=== PATIENT | female | born 1930 | race Caucasian/White ===

== ENCOUNTER 2017-02-21 13:08 | Inpatient (IN) | payer MEDICARE ==
[~2017-02-21 13:08] MED LIST: Polyethylene Glycol 3350 Powder 17 GM Packet PO PRN; Polyvinyl Alcohol 1.4% Ophth Soln 15 ML Bottle EYEBOTH PRN; Sodium Chloride 0.65% Nasal Spray 45 ML Bottle NAS PRN
[2017-02-21] MEDS ORDERED: Polyethylene Glycol 3350 Powder 17 GM Packet PO PRN (14:54)
--- NOTE | 2017-02-21 15:03 | PCM.HP ---
H&P History of Present Illness - General Date of Service: 02/21/17 Admit Problem/Dx: Admission Diagnosis/Problem Admission Diagnosis/Problem Knee pain Source of Information: Patient History Limitations: Reports: No Limitations - History of Present Illness Initial Comments - Free Text/Narative: 86-year-old female with past medical history of polymyalgia rheumatica, hypertension, and hypothyroidism, glaucoma, osteoporosis, osteoarthritis who is status post left knee total arthroplasty that was done on 02/18/17 without significant pre-operative complication. patient is being admitted to swing bed for post surgical physical therapy. She states that her pain is controlled and she has been able to tolerate physical therapy at the previous facility without any difficulties. should not have all movements since surgery until today when she had one this morning. she denies fever, chills, chest pain , palpitations, shortness of breath, nausea or vomiting. she can bear weight on her left lower extremity using walker. Patient was on Xarelto after surgery. This was changed to aspirin for DVT prophylaxis. However patient stated that she can't tolerate aspirin as she had personal and family history of bleeding from aspirin. patient declined to take aspirin and wants to be Xarelto instead Left Knee Pain Score (Numeric/FACES): 4 - Related Data Allergies/Adverse Reactions: Allergies Allergy/AdvReac Type Severity Reaction Status Date / Time aspirin Allergy Bleeding Verified 02/20/17 18:16 NSAIDS (Non-Steroidal Allergy Bleeding Verified 02/20/17 18:16 Anti-Inflamma Home Medications: Home Meds Calcium Carbonate/Vitamin D3 [Calcium 600 + D Tablet] 1 each PO DAILY 06/18/15 [ History] Levothyroxine [Synthroid] 50 mcg PO DAILY 06/18/15 [History] Acetaminophen [Tylenol Extra Strength] 1,000 mg PO TID PRN 06/23/15 [History] Latanoprost [Xalatan 0.005% Ophth Soln] 1 drop EYEBOTH BEDTIME 06/23/15 [History ] Psyllium Husk/Aspartame [Metamucil Sugar Free] 1 packet PO DAILY 06/23/15 [ History] Enalapril/Hydrochlorothiazide [Enalapril-HCTZ 10-25 MG] 1 tab PO DAILY 05/03/16 [History] Escitalopram Oxalate [Lexapro] 5 mg PO DAILY 05/03/16 [History] Levothyroxine Sodium [Synthroid] 12.5 mcg PO DAILY 05/03/16 [History] Vit A/C/E AC/Znox/Cupric Oxide [Eye Vitamin-Minerals Tablet] 2 tab PO BID [History] Ferrous Sulfate 325 mg PO WITHBREAKFAST #30 tablet 05/16/16 [Rx] Cholecalciferol (Vitamin D3) [Vitamin D3] 1,000 units PO DAILY 02/20/17 [History ] Polyethylene Glycol 3350 [MiraLAX] 17 gm PO DAILY PRN 02/20/17 [History] Calcium Carbonate [Calcium] 600 mg PO DAILY 02/21/17 [History] Past Medical History HEENT History: Reports: Cataract, Glaucoma, Macular Degeneration Other HEENT History: Sees spots in her vision at times Cardiovascular History: Reports: High Cholesterol, Hypertension Respiratory History: Reports: Bronchitis, Recurrent Gastrointestinal History: Reports: Diverticulosis, Hemorrhoids Genitourinary History: Reports: Urinary Incontinence Other Genitourinary History: Stress incontinence [employer] History: Reports: , Spontaneous Musculoskeletal History: Reports: Fracture, Osteoarthritis, Osteoporosis, Other (See Below) Other Musculoskeletal History: polymyalgia rheumatica, Proximal humeral fracture , Distal radial Fracture, closed left hip fracture Psychiatric History: Reports: Depression Endocrine/Metabolic History: Reports: Hyperparathyroidism, Hypothyroidism, Osteopenia, Osteoporosis Other Endocrine/Metabolic History: Hypothyroidism Hematologic History: Reports: Anemia Oncologic (Cancer) History: Reports: Squamous Cell Carcinoma Other Oncologic History: Endometrial cancer Dermatologic History: Reports: None - Infectious Disease History Infectious Disease History: Reports: Chicken Pox, Measles, Mumps - Past Surgical History HEENT Surgical History: Reports: None Cardiovascular Surgical History: Reports: None Respiratory Surgical History: Reports: None GI Surgical History: Reports: Colonoscopy, Polypectomy Female Surgical History: Reports: D&C, Hysterectomy, Salpingo-Oophorectomy, Other (See Below) Other Female Surgeries/Procedures: Endometrial biopsy, lymphadenectomy ( pelvic-all negative) Endocrine Surgical History: Reports: Parathyroidectomy Musculoskeletal Surgical History: Reports: Knee Replacement Oncologic Surgical History: Reports: None Dermatological Surgical History: Reports: Skin Biopsy Social & Family History - Family History Family Medical History: Noncontributory - Tobacco Use Smoking Status *Q: Former Smoker Years of Tobacco use: 10 Packs/Tins Daily: 1 Used Tobacco, but Quit: Yes Month Tobacco Last Used: 12 Second Hand Smoke Exposure: No - Caffeine Use Caffeine Use: Reports: Coffee - Recreational Drug Use Recreational Drug Use: No - Living Situation & Occupation Living situation: Reports: , Alone Occupation: Retired H&P Review of Systems - Review of Systems: Review Of Systems: See Below General: Reports: No Symptoms HEENT: Reports: No Symptoms Pulmonary: Reports: No Symptoms Cardiovascular: Reports: No Symptoms Gastrointestinal: Reports: No Symptoms Genitourinary: Reports: No Symptoms Musculoskeletal: Denies: Hand Pain, Muscle Stiffness Skin: Reports: No Symptoms Psychiatric: Reports: No Symptoms Neurological: Reports: No Symptoms Exam - Exam Exam: See Below - Vital Signs Vital Signs: Last Vital Signs Temp 37.1 C 02/21/17 14:20 Pulse 81 02/21/17 14:20 Resp 18 02/21/17 14:20 BP 128/56 L 02/21/17 14:20 Pulse Ox 98 02/21/17 14:20 Weight: 74.933 kg - Exam General: Alert, Oriented, Cooperative. No: Mild Distress, Moderate Distress, Severe Distress, Sedated, Lethargic, Obtunded HEENT: Conjunctiva Clear, EACs Clear, EOMI, Hearing Intact, Mucosa Moist & [place] , Nares Patent, Normal Nasal Septum, Posterior Pharynx Clear, Pupils Equal, Pupils Reactive, TMs Clear Neck: Supple, Trachea Midline Lungs: Clear to Auscultation, Normal Respiratory Effort Cardiovascular: Regular Rate, Regular Rhythm Abdomen: Normal Bowel Sounds, Soft, Pelvis Stable. No: Distention, Guarding, Rigidity, Rebound (Female) Exam: Deferred Rectal (Female) Exam: Deferred Back Exam: Normal Inspection, Full Range of Motion Extremities: Normal Pulses, Edema (mild left lower extremity edema acceptable for postsurgical condition. Left knee dressing is clean, dry, intact). No: Clubbing, Cyanosis, Calf Tenderness Neuro Extensive - Motor, Sensory, Reflexes: CN II-XII Intact, Normal Reflexes. No: Abnormal Motor Psychiatric: Alert, Normal Affect, Normal Mood *Q Meaningful Use (ADM) - VTE *Q VTE Criteria *Q: - Stroke *Q Stroke Criteria *Q: - AMI *Q AMI Criteria *Q: Problem List Initiated/Reviewed/Updated: Yes Orders Last 24hrs: Active Orders 24 hr Category Date Time Status Patient Status [ADT] Routine ADT 02/21/17 10:02 Active Ambulate [RC] PER UNIT ROUTINE Care 02/21/17 10:01 Active Antiembolic Devices [RC] PER UNIT ROUTINE Care 02/21/17 10:17 Active Height and Weight [RC] WEEKLY Care 02/21/17 10:11 Active Intake and Output [RC] ASDIRECTED Care 02/21/17 10:01 Active May Shower [RC] ASDIRECTED Care 02/21/17 10:01 Active Oxygen Therapy [RC] PRN Care 02/21/17 10:02 Active Up With Assistance [RC] ASDIRECTED Care 02/21/17 10:01 Active Up ad [place] [RC] ASDIRECTED Care 02/21/17 10:01 Active VTE/DVT Education [RC] PER UNIT ROUTINE Care 02/21/17 10:02 Active Vital Signs [RC] PER UNIT ROUTINE Care 02/21/17 10:02 Active OT Evaluation and Treatment [CONS] Routine Cons 02/21/17 10:01 Active PT Evaluation and Treatment [CONS] Routine Cons 02/21/17 10:01 Active Regular Diet [DIET] Diet 02/21/17 Breakfast Active Acetaminophen [Tylenol] Med 02/21/17 10:01 Active 650 mg PO Q4H PRN Acetaminophen/HYDROcodone [[place] 325-10 MG] Med 02/21/17 10:01 Active 1 tab PO Q4H PRN Calcium Carbonate Med 02/22/17 09:00 Ordered 600 mg PO DAILY Calcium Carbonate/Vitamin D3 [Calcium 600 + D Tablet] Med 02/22/17 09:00 Ordered 1 each PO DAILY Cholecalciferol (Vitamin D3) [Vitamin D3] Med 02/22/17 09:00 Ordered 1,000 units PO DAILY Docusate Sodium [Colace] Med 02/21/17 10:01 Active 100 mg PO BID PRN Docusate Sodium/Sennosides [Senna Plus] Med 02/21/17 10:01 Active 1 tab PO BEDTIME PRN Enalapril/Hydrochlorothiazide [Enalapril-HCTZ 10-25 MG] Med 02/22/17 09:00 Ordered 1 tab PO DAILY Escitalopram Oxalate [Lexapro] Med 02/22/17 09:00 Ordered 5 mg PO DAILY Ferrous Sulfate Med 02/22/17 08:00 Ordered 325 mg PO WITHBREAKFAST Latanoprost [Xalatan 0.005% Ophth Soln] Med 02/21/17 21:00 Ordered 1 drop EYEBOTH BEDTIME Levothyroxine Med 02/22/17 09:00 Ordered 12.5 mcg PO DAILY Levothyroxine [Synthroid] Med 02/22/17 09:00 Ordered 50 mcg PO DAILY Ondansetron [Zofran ODT] Med 02/21/17 10:01 Active 4 mg PO Q6H PRN Polyethylene Glycol 3350 [MiraLAX] Med 02/21/17 10:01 Active 17 gm PO DAILY PRN Polyethylene Glycol 3350 [MiraLAX] Med 02/21/17 14:54 Ordered 17 gm PO DAILY PRN Polyvinyl Alcohol [LiquiTears 1.4% Ophth Soln] Med 02/21/17 10:01 Active 0 ml EYEBOTH ASDIRECTED PRN Psyllium Husk/Aspartame Med 02/22/17 09:00 Ordered 1 packet PO DAILY Sodium Chloride 0.65% [[place] Nasal [place]] Med 02/21/17 10:01 Active 0 ml MARCIA BID PRN Vit A/C/E AC/Znox/Cupric Oxide [Eye Vitamin-Minerals Med 02/21/17 21:00 Ordered Tablet] 2 tab PO BID Antiembolic Hose [OM.PC] Routine Oth 02/21/17 10:01 Ordered Resuscitation Status Routine Resus Stat 02/21/17 10:01 Ordered Medication Orders Acetaminophen (Tylenol) 650 mg PO Q4H PRN PRN Reason: Pain (Mild 1-3)/fever Hydrocodone Bitart/Acetaminophen ([place] 325-10 Mg) 1 tab PO Q4H PRN PRN Reason: Pain (moderate 4-6) Artificial Tears (Liquitears 1.4% Ophth Soln) 0 ml EYEBOTH ASDIRECTED PRN PRN Reason: Dry Eyes Docusate Sodium (Colace) 100 mg PO BID PRN PRN Reason: Constipation Ondansetron HCl (Zofran Odt) 4 mg PO Q6H PRN PRN Reason: nausea, able to take PO Polyethylene Glycol (Miralax) 17 gm PO DAILY PRN PRN Reason: Constipation Senna/Docusate Sodium (Senna Plus) 1 tab PO BEDTIME PRN PRN Reason: Constipation Sodium Chloride ([place] Nasal [place]) 0 ml MARCIA BID PRN PRN Reason: Nasal Congestion Assessment/Plan Comment:: Status post left total knee arthroplasty. continue physical therapy Use walker okay to bear weight on left leg as tolerated opiate orally as needed for pain Essential Hypertension. continue home antihypertensive medication Hypothyroidism, on hormone replacement therapy. Polymyalgia rheumatica treat pain as needed Xarelto for DVT prophylaxis Patient wants to be DNR
[2017-02-21] MEDS: Acetaminophen 325 MG Tab PO PRN ×2 (17:31→22:54)
[2017-02-21] MEDS: Latanoprost 0.005% Ophth Soln 2.5 ML Bottle EYEBOTH SCH (22:55)
[2017-02-21] MEDS: Lutein/Minerals/Vit A,C & E Tab PO SCH (23:03)
[2017-02-22] MEDS: Acetaminophen 325 MG Tab PO PRN (03:35)
[2017-02-22] MEDS: Levothyroxine 50 MCG Tab PO SCH (06:03)
[2017-02-22] MEDS: Levothyroxine 25 MCG Tab PO SCH (06:03)
[2017-02-22] MEDS: Psyllium Husk Powder Sugar Free 5.85 GM Packet PO SCH (09:03)
[2017-02-22] MEDS: Escitalopram 10 MG Tab PO SCH (09:04)
[2017-02-22] MEDS: Lutein/Minerals/Vit A,C & E Tab PO SCH (09:04)
[2017-02-22] MEDS: Ferrous Sulfate 325 MG Tab PO SCH (09:05)
[2017-02-22] MEDS: Cholecalciferol (Vitamin D3) 400 Unit Tab PO SCH (09:05)
[2017-02-22] MEDS: Calcium Carbonate/Vitamin D3 1250 MG-200 Unit Tab PO SCH (09:05)
[2017-02-22] MEDS: Calcium Carbonate 500 MG Tab.Chew PO SCH (09:06)
[2017-02-22] MEDS: Hydrochlorothiazide 25 MG Tab PO SCH (09:25)
[2017-02-22] MEDS ORDERED: Mineral Oil/Petrolatum/Phenylephrine/Shark Liver Oil Oint 57 GM Tube RECTAL PRN (09:58)
--- NOTE | 2017-02-22 10:55 | PCM.SN ---
- Free Text/Narrative Note: patient was feeling tired but no change in her exam. Hemoglobin was checked and was 7.7. Yesterday was 8.5. She denies blood in the stool black stool or bleeding anywhere. When RBCs is orded. All check hemoglobin this evening and tomorrow and if Hgb continues to drop we may need to discontinue xarelto
[2017-02-22] MEDS ORDERED: diphenhydrAMINE 12.5 MG/5 ML Liquid 5 ML UD Cup PO PRN (12:03)
[2017-02-22] MEDS: Acetaminophen/HYDROcodone 325-10 MG Tab PO PRN (13:05)
[2017-02-22] MEDS: Rivaroxaban 10 MG Tab PO SCH (18:38)
[2017-02-22] MEDS: [UNRECOGNIZED DRUG - OTHER] PO SCH (20:33)
[2017-02-22] MEDS: Latanoprost 0.005% Ophth Soln 2.5 ML Bottle EYEBOTH SCH (20:33)
[2017-02-22] MEDS: Sodium Chloride 0.9% 10 ML Syringe FLUSH PRN (20:34)
[2017-02-23] MEDS: Levothyroxine 25 MCG Tab PO SCH (05:18)
[2017-02-23] MEDS: Levothyroxine 50 MCG Tab PO SCH (05:18)
[2017-02-23] MEDS: Acetaminophen 325 MG Tab PO PRN (05:18)
[2017-02-23] MEDS: Calcium Carbonate 500 MG Tab.Chew PO SCH (10:26)
[2017-02-23] MEDS: Calcium Carbonate/Vitamin D3 1250 MG-200 Unit Tab PO SCH (10:26)
[2017-02-23] MEDS: Ferrous Sulfate 325 MG Tab PO SCH (10:32)
[2017-02-23] MEDS: Hydrochlorothiazide 25 MG Tab PO SCH (10:33)
[2017-02-23] MEDS: Escitalopram 10 MG Tab PO SCH (10:33)
[2017-02-23] MEDS: Cholecalciferol (Vitamin D3) 400 Unit Tab PO SCH (10:34)
[2017-02-23] MEDS: [UNRECOGNIZED DRUG - OTHER] PO SCH ×2 (10:35→20:26)
[2017-02-23] MEDS: Psyllium Husk Powder Sugar Free 5.85 GM Packet PO SCH (10:35)
[2017-02-23] MEDS: Acetaminophen/HYDROcodone 325-10 MG Tab PO PRN ×2 (14:55→22:27)
[2017-02-23] MEDS: Docusate Sodium 100 MG Cap PO PRN (14:55)
[2017-02-23] MEDS: Rivaroxaban 10 MG Tab PO SCH (17:55)
[2017-02-23] MEDS: Sodium Chloride 0.9% 10 ML Syringe FLUSH PRN (20:26)
[2017-02-23] MEDS: Latanoprost 0.005% Ophth Soln 2.5 ML Bottle EYEBOTH SCH (20:26)
[2017-02-24] MEDS: Levothyroxine 50 MCG Tab PO SCH (05:38)
[2017-02-24] MEDS: Levothyroxine 25 MCG Tab PO SCH (05:38)
[2017-02-24] MEDS: Calcium Carbonate/Vitamin D3 1250 MG-200 Unit Tab PO SCH (09:24)
[2017-02-24] MEDS: Hydrochlorothiazide 25 MG Tab PO SCH (09:24)
[2017-02-24] MEDS: Escitalopram 10 MG Tab PO SCH (09:24)
[2017-02-24] MEDS: Cholecalciferol (Vitamin D3) 400 Unit Tab PO SCH (09:25)
[2017-02-24] MEDS: Ferrous Sulfate 325 MG Tab PO SCH (09:27)
[2017-02-24] MEDS: Psyllium Husk Powder Sugar Free 5.85 GM Packet PO SCH (09:28)
[2017-02-24] MEDS: Calcium Carbonate 500 MG Tab.Chew PO SCH (09:29)
[2017-02-24] MEDS: [UNRECOGNIZED DRUG - OTHER] PO SCH ×2 (09:30→22:43)
[2017-02-24] MEDS: Acetaminophen/HYDROcodone 325-10 MG Tab PO PRN ×2 (10:01→22:45)
[2017-02-24] MEDS: Acetaminophen 325 MG Tab PO PRN (17:19)
[2017-02-24] MEDS: Rivaroxaban 10 MG Tab PO SCH (17:20)
[2017-02-24] MEDS: Latanoprost 0.005% Ophth Soln 2.5 ML Bottle EYEBOTH SCH (22:44)
[2017-02-25] MEDS: Levothyroxine 50 MCG Tab PO SCH (05:58)
[2017-02-25] MEDS: Acetaminophen 325 MG Tab PO PRN ×2 (05:59→16:18)
[2017-02-25] MEDS: Levothyroxine 25 MCG Tab PO SCH (05:59)
[2017-02-25] MEDS: Cholecalciferol (Vitamin D3) 400 Unit Tab PO SCH (08:30)
[2017-02-25] MEDS: Hydrochlorothiazide 25 MG Tab PO SCH (08:34)
[2017-02-25] MEDS: Calcium Carbonate/Vitamin D3 1250 MG-200 Unit Tab PO SCH (08:35)
[2017-02-25] MEDS: Ferrous Sulfate 325 MG Tab PO SCH (08:35)
[2017-02-25] MEDS: Escitalopram 10 MG Tab PO SCH (08:36)
[2017-02-25] MEDS: Calcium Carbonate 500 MG Tab.Chew PO SCH (08:37)
[2017-02-25] MEDS: [UNRECOGNIZED DRUG - OTHER] PO SCH ×2 (08:37→21:40)
[2017-02-25] MEDS: Psyllium Husk Powder Sugar Free 5.85 GM Packet PO SCH (08:38)
[2017-02-25] MEDS: Acetaminophen/HYDROcodone 325-10 MG Tab PO PRN ×2 (10:30→22:25)
[2017-02-25] MEDS: Rivaroxaban 10 MG Tab PO SCH (17:32)
[2017-02-25] MEDS: Latanoprost 0.005% Ophth Soln 2.5 ML Bottle EYEBOTH SCH (21:41)
[2017-02-26] MEDS: Levothyroxine 25 MCG Tab PO SCH (05:46)
[2017-02-26] MEDS: Levothyroxine 50 MCG Tab PO SCH (05:46)
[2017-02-26] MEDS: Escitalopram 10 MG Tab PO SCH (08:43)
[2017-02-26] MEDS: Hydrochlorothiazide 25 MG Tab PO SCH (08:44)
[2017-02-26] MEDS: Ferrous Sulfate 325 MG Tab PO SCH (08:44)
[2017-02-26] MEDS: Calcium Carbonate/Vitamin D3 1250 MG-200 Unit Tab PO SCH (08:44)
[2017-02-26] MEDS: Cholecalciferol (Vitamin D3) 400 Unit Tab PO SCH (08:45)
[2017-02-26] MEDS: Calcium Carbonate 500 MG Tab.Chew PO SCH (08:45)
[2017-02-26] MEDS: [UNRECOGNIZED DRUG - OTHER] PO SCH ×2 (08:46→20:45)
[2017-02-26] MEDS: Psyllium Husk Powder Sugar Free 5.85 GM Packet PO SCH (08:47)
[2017-02-26] MEDS: Acetaminophen/HYDROcodone 325-10 MG Tab PO PRN ×2 (09:30→20:42)
[2017-02-26] MEDS: Sodium Chloride 0.9% 10 ML Syringe FLUSH PRN (13:30)
[2017-02-26] MEDS: Acetaminophen 325 MG Tab PO PRN (13:31)
[2017-02-26] MEDS: Rivaroxaban 10 MG Tab PO SCH (17:34)
[2017-02-26] MEDS: Latanoprost 0.005% Ophth Soln 2.5 ML Bottle EYEBOTH SCH (20:46)
[2017-02-27] MEDS: Levothyroxine 50 MCG Tab PO SCH (06:52)
[2017-02-27] MEDS: Levothyroxine 25 MCG Tab PO SCH (06:52)
[2017-02-27] MEDS: Acetaminophen/HYDROcodone 325-10 MG Tab PO PRN ×2 (07:38→21:17)
[2017-02-27] MEDS: Hydrochlorothiazide 25 MG Tab PO SCH (09:28)
[2017-02-27] MEDS: Ferrous Sulfate 325 MG Tab PO SCH (09:28)
[2017-02-27] MEDS: Docusate Sodium 100 MG Cap PO PRN (09:29)
[2017-02-27] MEDS: Cholecalciferol (Vitamin D3) 400 Unit Tab PO SCH (09:30)
[2017-02-27] MEDS: Calcium Carbonate/Vitamin D3 1250 MG-200 Unit Tab PO SCH (09:30)
[2017-02-27] MEDS: Calcium Carbonate 500 MG Tab.Chew PO SCH (09:30)
[2017-02-27] MEDS: Escitalopram 10 MG Tab PO SCH (09:31)
[2017-02-27] MEDS: Psyllium Husk Powder Sugar Free 5.85 GM Packet PO SCH (09:33)
[2017-02-27] MEDS: [UNRECOGNIZED DRUG - OTHER] PO SCH ×2 (13:01→21:18)
[2017-02-27] MEDS: Rivaroxaban 10 MG Tab PO SCH (18:00)
[2017-02-27] MEDS: Latanoprost 0.005% Ophth Soln 2.5 ML Bottle EYEBOTH SCH (21:16)
[2017-02-28] MEDS: Levothyroxine 25 MCG Tab PO SCH (06:23)
[2017-02-28] MEDS: Levothyroxine 50 MCG Tab PO SCH (06:23)
[2017-02-28] MEDS: Acetaminophen/HYDROcodone 325-10 MG Tab PO PRN ×2 (09:53→22:12)
[2017-02-28] MEDS: Calcium Carbonate 500 MG Tab.Chew PO SCH (09:53)
[2017-02-28] MEDS: Ferrous Sulfate 325 MG Tab PO SCH (09:54)
[2017-02-28] MEDS: Escitalopram 10 MG Tab PO SCH (09:54)
[2017-02-28] MEDS: Psyllium Husk Powder Sugar Free 5.85 GM Packet PO SCH (09:55)
[2017-02-28] MEDS: Cholecalciferol (Vitamin D3) 400 Unit Tab PO SCH (09:55)
[2017-02-28] MEDS: Calcium Carbonate/Vitamin D3 1250 MG-200 Unit Tab PO SCH (09:56)
[2017-02-28] MEDS: [UNRECOGNIZED DRUG - OTHER] PO SCH ×2 (10:10→20:18)
[2017-02-28] MEDS: Hydrochlorothiazide 25 MG Tab PO SCH (10:27)
[2017-02-28] MEDS: Rivaroxaban 10 MG Tab PO SCH (17:40)
[2017-02-28] MEDS: Latanoprost 0.005% Ophth Soln 2.5 ML Bottle EYEBOTH SCH (20:19)
[2017-03-01] MEDS: Acetaminophen 325 MG Tab PO PRN (05:23)
[2017-03-01] MEDS: Levothyroxine 50 MCG Tab PO SCH (05:24)
[2017-03-01] MEDS: Levothyroxine 25 MCG Tab PO SCH (05:25)
[2017-03-01] MEDS: Escitalopram 10 MG Tab PO SCH (09:04)
[2017-03-01] MEDS: Ferrous Sulfate 325 MG Tab PO SCH (09:04)
[2017-03-01] MEDS: Calcium Carbonate/Vitamin D3 1250 MG-200 Unit Tab PO SCH (09:04)
[2017-03-01] MEDS: Cholecalciferol (Vitamin D3) 400 Unit Tab PO SCH (09:05)
[2017-03-01] MEDS: Calcium Carbonate 500 MG Tab.Chew PO SCH (09:10)
[2017-03-01] MEDS: Psyllium Husk Powder Sugar Free 5.85 GM Packet PO SCH (09:14)
[2017-03-01] MEDS: Acetaminophen/HYDROcodone 325-10 MG Tab PO PRN ×2 (11:51→21:30)
[2017-03-01] MEDS: [UNRECOGNIZED DRUG - OTHER] PO SCH ×2 (11:55→20:48)
[2017-03-01 13:00] LABS: CHLORIDE,CL 96 mmol/L (101-111); SODIUM,NA 135 mmol/L (135-145)
[2017-03-01] MEDS: Hydrochlorothiazide 25 MG Tab PO SCH (13:44)
[2017-03-01] MEDS: Rivaroxaban 10 MG Tab PO SCH (17:50)
[2017-03-01] MEDS: Latanoprost 0.005% Ophth Soln 2.5 ML Bottle EYEBOTH SCH (20:49)
[2017-03-02] MEDS: Levothyroxine 25 MCG Tab PO SCH (05:18)
[2017-03-02] MEDS: Levothyroxine 50 MCG Tab PO SCH (05:18)
[2017-03-02] MEDS: Calcium Carbonate/Vitamin D3 1250 MG-200 Unit Tab PO SCH (08:52)
[2017-03-02] MEDS: Ferrous Sulfate 325 MG Tab PO SCH (08:52)
[2017-03-02] MEDS: Hydrochlorothiazide 25 MG Tab PO SCH (08:52)
[2017-03-02] MEDS: Psyllium Husk Powder Sugar Free 5.85 GM Packet PO SCH (08:53)
[2017-03-02] MEDS: Calcium Carbonate 500 MG Tab.Chew PO SCH (08:53)
[2017-03-02] MEDS: Escitalopram 10 MG Tab PO SCH (08:53)
[2017-03-02] MEDS: Cholecalciferol (Vitamin D3) 400 Unit Tab PO SCH (08:54)
[2017-03-02] MEDS: Acetaminophen/HYDROcodone 325-10 MG Tab PO PRN ×2 (08:55→20:56)
[2017-03-02] MEDS: [UNRECOGNIZED DRUG - OTHER] PO SCH ×2 (09:01→20:55)
[2017-03-02] MEDS ORDERED: Mineral Oil/Petrolatum/Phenylephrine/Shark Liver Oil Oint 57 GM Tube RECTAL PRN (10:50)
--- NOTE | 2017-03-02 12:01 | PN ---
DATE: 03/02/2017 SUBJECTIVE: Ms. Rosamaria Branham is an 86-year-old female with medical history significant for hypertension, hyperlipidemia, polymyalgia rheumatica, severe osteoarthritis requiring left knee total arthroplasty on 02/18/2017 at [facility] without any complications and admitted to the swing bed for continued physical therapy and occupational therapy. For the past 24 hours, the patient complains of increasing weakness and tiredness. She has poor oral intake as she claims that she is not feeling like eating. She also complains of unable to sleep well since this morning. She denied any chest pain. No shortness of breath. No abdominal pain. No nausea. No vomiting. No diarrhea. She has mild discomfort at the surgical site, which is the left knee 2-3/10 in intensity, aggravated on ambulation, relieved with pain medications, not associated with any nausea or vomiting. REVIEW OF SYSTEMS: Cardiovascular, respiratory, gastrointestinal, neurology, constitutional were all evaluated. PHYSICAL EXAMINATION: Vital Signs: Temperature of 98.5, pulse of 92, blood pressure 125/63, respiratory rate of 20, and saturating at 98% on room air. General Appearance: The patient is well oriented to time, place, and person. Follows commands spontaneously. Cardiovascular System: S1, S2 heard with normal intensity. No gallops. Respiratory: Clear to auscultation bilaterally. No wheeze. No crepitations. Abdomen: Soft. Bowel sounds positive. Nontender. No rigidity. Extremities: No edema in bilateral lower extremities. Neurology: No gross focal neurological deficits. MEDICATIONS: Reviewed. Continue Tylenol 650 every 4 hours as needed for pain, calcium carbonate 500 mg daily, docusate sodium twice a day as needed, enalapril 10 mg daily, Lexapro 5 mg daily, ferrous sulfate 325 mg daily, hydrochlorothiazide 25 mg daily, levothyroxine 50 mcg daily, Zofran 4 mg every 6 hours as needed for pain, Xarelto 10 mg daily, and diphenhydramine 12.5 mg as needed. LABORATORY DATA: Reviewed. WBC 8.4, hemoglobin 9.2, hematocrit 28.9, and platelet count 320. Sodium 135, potassium 4.1, chloride 96, bicarb 31, BUN 21, and creatinine 0.7. ASSESSMENT: 1. Left total knee arthroplasty. 2. Hypertension. 3. Hyperlipidemia. 4. Generalized weakness. 5. Anemia. 6. Hypothyroidism. 7. Polymyalgia rheumatica. PLAN: 1. Hypertension. The patient's blood pressure seems to be in acceptable range. Continue with current antihypertensive medications. 2. Hypothyroidism. The patient is currently on levothyroxine. Continue the same. 3. Status post left total knee arthroplasty. Continue Physical Therapy and Occupational Therapy. The patient was recently evaluated by Orthopedic Surgery. 4. Wound Care. Continue with wound care. Continue with pain medications for good control of the pain. 5. Hemorrhoids. The patient complained of pain at the hemorrhoidal site. We will prescribe hemorrhoidal cream for symptom control. 6. Deep vein thrombosis prophylaxis. Continue with Xarelto for DVT prophylaxis. 7. Generalized weakness. The patient has poor oral intake. She is not eating well and drinking well. This is reflecting in her labs where her BUN is slightly high suggestive of possible dehydration. The patient will be encouraged to eat and drink. We will recheck a BMP in a.m. and make sure the patient is not getting into prerenal azotemia from her dehydration. 8. Continue PT/OT while in the swing bed. [facility] /[id number]
[2017-03-02] MEDS: Rivaroxaban 10 MG Tab PO SCH (17:36)
[2017-03-02] MEDS: Latanoprost 0.005% Ophth Soln 2.5 ML Bottle EYEBOTH SCH (20:58)
[2017-03-03] MEDS: Levothyroxine 50 MCG Tab PO SCH (06:03)
[2017-03-03] MEDS: Levothyroxine 25 MCG Tab PO SCH (06:04)
[2017-03-03 06:53] LABS: CHLORIDE,CL 97 mmol/L (101-111); SODIUM,NA 136 mmol/L (135-145)
[2017-03-03] MEDS: Psyllium Husk Powder Sugar Free 5.85 GM Packet PO SCH (09:37)
[2017-03-03] MEDS: Cholecalciferol (Vitamin D3) 400 Unit Tab PO SCH (09:38)
[2017-03-03] MEDS: Escitalopram 10 MG Tab PO SCH (09:38)
[2017-03-03] MEDS: Hydrochlorothiazide 25 MG Tab PO SCH (09:38)
[2017-03-03] MEDS: Calcium Carbonate 500 MG Tab.Chew PO SCH (09:39)
[2017-03-03] MEDS: Ferrous Sulfate 325 MG Tab PO SCH (09:39)
[2017-03-03] MEDS: Calcium Carbonate/Vitamin D3 1250 MG-200 Unit Tab PO SCH (09:39)
[2017-03-03] MEDS: [UNRECOGNIZED DRUG - OTHER] PO SCH ×2 (10:24→20:41)
[2017-03-03] MEDS: Acetaminophen/HYDROcodone 325-10 MG Tab PO PRN ×2 (10:25→15:14)
[2017-03-03] MEDS: Rivaroxaban 10 MG Tab PO SCH (17:59)
[2017-03-03] MEDS: Latanoprost 0.005% Ophth Soln 2.5 ML Bottle EYEBOTH SCH (20:42)
[2017-03-04] MEDS: Levothyroxine 50 MCG Tab PO SCH (05:51)
[2017-03-04] MEDS: Levothyroxine 25 MCG Tab PO SCH (05:51)
[2017-03-04] MEDS: Acetaminophen/HYDROcodone 325-10 MG Tab PO PRN ×3 (07:53→21:01)
[2017-03-04] MEDS: Ferrous Sulfate 325 MG Tab PO SCH (07:53)
[2017-03-04] MEDS: Psyllium Husk Powder Sugar Free 5.85 GM Packet PO SCH (09:13)
[2017-03-04] MEDS: Cholecalciferol (Vitamin D3) 400 Unit Tab PO SCH (09:14)
[2017-03-04] MEDS: Calcium Carbonate 500 MG Tab.Chew PO SCH (09:14)
[2017-03-04] MEDS: Calcium Carbonate/Vitamin D3 1250 MG-200 Unit Tab PO SCH (09:15)
[2017-03-04] MEDS: Hydrochlorothiazide 25 MG Tab PO SCH (09:16)
[2017-03-04] MEDS: Escitalopram 10 MG Tab PO SCH (09:16)
[2017-03-04] MEDS: [UNRECOGNIZED DRUG - OTHER] PO SCH ×2 (09:17→21:02)
[2017-03-04] MEDS: Rivaroxaban 10 MG Tab PO SCH (17:36)
[2017-03-04] MEDS: Latanoprost 0.005% Ophth Soln 2.5 ML Bottle EYEBOTH SCH (21:03)
[2017-03-05] MEDS: Levothyroxine 50 MCG Tab PO SCH (05:51)
[2017-03-05] MEDS: Levothyroxine 25 MCG Tab PO SCH (06:00)
[2017-03-05] MEDS: Ferrous Sulfate 325 MG Tab PO SCH (08:03)
[2017-03-05] MEDS: Acetaminophen/HYDROcodone 325-10 MG Tab PO PRN ×3 (08:05→21:36)
[2017-03-05] MEDS: Psyllium Husk Powder Sugar Free 5.85 GM Packet PO SCH (09:20)
[2017-03-05] MEDS: Cholecalciferol (Vitamin D3) 400 Unit Tab PO SCH (09:21)
[2017-03-05] MEDS: Calcium Carbonate/Vitamin D3 1250 MG-200 Unit Tab PO SCH (09:21)
[2017-03-05] MEDS: Escitalopram 10 MG Tab PO SCH (09:23)
[2017-03-05] MEDS: Hydrochlorothiazide 25 MG Tab PO SCH (09:23)
[2017-03-05] MEDS: Calcium Carbonate 500 MG Tab.Chew PO SCH (09:24)
[2017-03-05] MEDS: [UNRECOGNIZED DRUG - OTHER] PO SCH ×2 (09:24→21:33)
[2017-03-05] MEDS: Rivaroxaban 10 MG Tab PO SCH (17:27)
[2017-03-05] MEDS: Latanoprost 0.005% Ophth Soln 2.5 ML Bottle EYEBOTH SCH (21:34)
[2017-03-06] MEDS: Levothyroxine 25 MCG Tab PO SCH (06:06)
[2017-03-06] MEDS: Levothyroxine 50 MCG Tab PO SCH (06:06)
[2017-03-06] MEDS: Acetaminophen/HYDROcodone 325-10 MG Tab PO PRN ×2 (06:08→20:01)
[2017-03-06] MEDS: Calcium Carbonate/Vitamin D3 1250 MG-200 Unit Tab PO SCH (10:42)
[2017-03-06] MEDS: Ferrous Sulfate 325 MG Tab PO SCH (10:42)
[2017-03-06] MEDS: [UNRECOGNIZED DRUG - OTHER] PO SCH ×2 (10:42→20:01)
[2017-03-06] MEDS: Escitalopram 10 MG Tab PO SCH (10:42)
[2017-03-06] MEDS: Psyllium Husk Powder Sugar Free 5.85 GM Packet PO SCH (10:42)
[2017-03-06] MEDS: Cholecalciferol (Vitamin D3) 400 Unit Tab PO SCH (10:43)
[2017-03-06] MEDS: Calcium Carbonate 500 MG Tab.Chew PO SCH (10:43)
[2017-03-06] MEDS: Hydrochlorothiazide 25 MG Tab PO SCH (11:44)
[2017-03-06] MEDS: Acetaminophen 325 MG Tab PO PRN (13:00)
[2017-03-06] MEDS: Rivaroxaban 10 MG Tab PO SCH (17:09)
[2017-03-06] MEDS: Latanoprost 0.005% Ophth Soln 2.5 ML Bottle EYEBOTH SCH (20:01)
[2017-03-07] MEDS: Levothyroxine 25 MCG Tab PO SCH (06:38)
[2017-03-07] MEDS: Levothyroxine 50 MCG Tab PO SCH (06:38)
[2017-03-07 06:58] LABS: CHLORIDE,CL 93 mmol/L (101-111); SODIUM,NA 132 mmol/L (135-145)
[2017-03-07] MEDS: Acetaminophen/HYDROcodone 325-10 MG Tab PO PRN ×2 (09:04→22:17)
[2017-03-07] MEDS: Ferrous Sulfate 325 MG Tab PO SCH (09:04)
[2017-03-07] MEDS: Psyllium Husk Powder Sugar Free 5.85 GM Packet PO SCH (09:04)
[2017-03-07] MEDS: Calcium Carbonate 500 MG Tab.Chew PO SCH (09:04)
[2017-03-07] MEDS: Calcium Carbonate/Vitamin D3 1250 MG-200 Unit Tab PO SCH (09:05)
[2017-03-07] MEDS: Escitalopram 10 MG Tab PO SCH (09:05)
[2017-03-07] MEDS: Cholecalciferol (Vitamin D3) 400 Unit Tab PO SCH (09:06)
[2017-03-07] MEDS: [UNRECOGNIZED DRUG - OTHER] PO SCH ×2 (09:13→20:24)
--- NOTE | 2017-03-07 12:16 | PCM.PN ---
- General Info Date of Service: 03/07/17 Admission Dx/Problem (Free Text): Admission Diagnosis/Problem Admission Diagnosis/Problem Knee pain Subjective Update: continues to have left knee pain associated with night swelling, pain is worse with movements. no chest pain or shortness of breath. Bowel movements are regular but has little appetite Functional Status: Reports: tolerating diet - Review of Systems Pulmonary: Denies: shortness of breath Cardiovascular: Denies: Chest Pain Gastrointestinal: Denies: Abdominal pain Genitourinary: Denies: dysuria - Patient Data Vitals - most recent: Last Vital Signs Temp 37.6 C 03/07/17 08:00 Pulse 83 03/06/17 15:09 Resp 20 03/07/17 08:00 BP 107/42 L 03/07/17 09:45 Pulse Ox 98 03/07/17 08:00 Weight - most recent: 73.539 kg I&O - last 24 hours: Intake & Output 03/06/17 03/07/17 03/07/17 22:59 06:59 14:59 Intake Total 900 Balance 900 Lab Results last 24 hrs: Laboratory Results - last 24 hr 03/07/17 03/07/17 Range/Units 06:12 06:12 WBC 7.5 (5.0-10.0) 10^3/uL RBC 2.75 L (4.2-5.4) 10^6/uL Hgb 8.6 L (12.0-16.0) g/dL Hct 27.1 L (37.0-47.0) % MCV 98.5 (80-100) fL MCH 31.3 (27.0-34.0) pg MCHC 31.7 L (33.0-35.0) g/dL Plt Count 330 (150-450) 10^3/uL Neut % (Auto) 80.9 H (42.2-75.2) % Lymph % (Auto) 7.2 L (20.5-50.1) % [place] % (Auto) 11.0 H (2-8) % Eos % (Auto) 0.8 L (1.0-3.0) % Baso % (Auto) 0.1 (0.0-1.0) % Sodium 132 L (135-145) mmol/L Potassium 4.0 (3.6-5.0) mmol/L Chloride 93 L (101-111) mmol/L Carbon Dioxide 29.0 (21.0-31.0) mmol/L Anion Gap 14.0 BUN 19 H (7-18) mg/dL Creatinine 0.6 (0.6-1.3) mg/dL Est Cr Clr Drug Dosing 55.20 mL/min Estimated GFR (MDRD) > 60 Glucose 106 H (74-105) mg/dL Calcium 8.3 L (8.4-10.2) mg/dl Med Orders - Current: Current Medications Acetaminophen (Tylenol) 650 mg PO Q4H PRN PRN Reason: Pain (Mild 1-3)/fever Last Admin: 03/06/17 13:00 Dose: 650 mg Hydrocodone Bitart/Acetaminophen ([place] 325-10 Mg) 1 tab PO Q4H PRN PRN Reason: Pain (moderate 4-6) Last Admin: 03/07/17 09:04 Dose: 1 tab Artificial Tears (Liquitears 1.4% Ophth Soln) 0 ml EYEBOTH ASDIRECTED PRN PRN Reason: Dry Eyes Calcium Carbonate (Calcium Carbonate/Vitamin D 1250 Mg-200 Unit) 1 tab PO DAILY [facility] Last Admin: 03/07/17 09:05 Dose: 1 tab Calcium Carbonate/Glycine (Tums) 500 mg PO DAILY [facility] Last Admin: 03/07/17 09:04 Dose: 500 mg Cholecalciferol (Vitamin D3) 1,000 units PO DAILY [facility] Last Admin: 03/07/17 09:06 Dose: 1,000 units Diphenhydramine HCl (Benadryl) 12.5 mg PO ONETIME PRN PRN Reason: before blood transfusion Docusate Sodium (Colace) 100 mg PO BID PRN PRN Reason: Constipation Last Admin: 02/27/17 09:29 Dose: 100 mg Enalapril Maleate (Vasotec) 10 mg PO DAILY [facility] Last Admin: 03/07/17 09:45 Dose: 10 mg Escitalopram Oxalate (Lexapro) 5 mg PO DAILY [facility] Last Admin: 03/07/17 09:05 Dose: 5 mg Ferrous Sulfate (Ferrous Sulfate) 325 mg PO WITHBREAKFAST [facility] Last Admin: 03/07/17 09:04 Dose: 325 mg Latanoprost (Xalatan 0.005% Ophth Soln) 0 ml EYEBOTH BEDTIME [facility] Last Admin: 03/06/17 20:01 Dose: 1 drop Levothyroxine Sodium (Synthroid) 50 mcg PO DAILY@0600 [facility] Last Admin: 03/07/17 06:38 Dose: 50 mcg Levothyroxine Sodium (Levothyroxine) 12.5 mcg PO DAILY@0600 [facility] Last Admin: 03/07/17 06:38 Dose: 12.5 mcg Ondansetron HCl (Zofran Odt) 4 mg PO Q6H PRN PRN Reason: nausea, able to take PO Eyepromise Restore 1 (Tab Own Med) 1 each PO BID [facility] Last Admin: 03/07/17 09:13 Dose: 1 each Phenyleph/Shark Oil/Min Oil/Petrol (Preparation H Oint) 0 gm RECTAL TID PRN PRN Reason: Perineal Comfort Measure Polyethylene Glycol (Miralax) 17 gm PO DAILY PRN PRN Reason: Constipation Psyllium Husk (Metamucil Sugar Free) 1 pkt PO DAILY [facility] Last Admin: 03/07/17 09:04 Dose: 1 pkt Rivaroxaban (Xarelto) 10 mg PO WITHDINNER [facility] Last Admin: 03/06/17 17:09 Dose: 10 mg Senna/Docusate Sodium (Senna Plus) 1 tab PO BEDTIME PRN PRN Reason: Constipation Sodium Chloride ([place] Nasal [place]) 0 ml MARCIA BID PRN PRN Reason: Nasal Congestion Discontinued Medications Enalapril Maleate (Vasotec) 10 mg PO DAILY [facility] Last Admin: 03/06/17 11:45 Dose: Not Given Hydrochlorothiazide (Hydrochlorothiazide) 25 mg PO DAILY [facility] Last Admin: 03/06/17 11:44 Dose: Not Given Multivitamins/Minerals (I-Segun) 2 each PO BID [facility] Last Admin: 02/22/17 09:04 Dose: 2 each Phenyleph/[place]ark Oil/Min Oil/Petrol (Preparation H Oint) 0 gm RECTAL BID PRN PRN Reason: Hemorrhoids Polyethylene Glycol (Miralax) 17 gm PO DAILY PRN PRN Reason: Constipation Sodium Chloride (Saline Flush) 10 ml FLUSH ASDIRECTED PRN PRN Reason: Keep Vein Open Last Admin: 02/26/17 13:30 Dose: 10 ml - Exam General: alert, oriented Neck: supple Lungs: Clear to auscultation, Normal respiratory effort Cardiovascular: Regular Rate, Regular Rhythm Abdomen: bowel sounds present, soft, no tenderness, no distension Extremities: edema (trace left lower extremity edema) Skin: warm, dry, intact Neurological: no new focal deficit Psy/Mental Status: alert, normal affect, normal mood - Problem List & Annotations (1) Status post left knee replacement SNOMED Code(s): 3794300407012, 5222594142958 Code(s): Z96.652 - PRESENCE OF LEFT ARTIFICIAL KNEE JOINT Status: Acute Current Visit: Yes (2) HTN (hypertension) SNOMED Code(s): 17441127 Code(s): I10 - ESSENTIAL (PRIMARY) HYPERTENSION Status: Chronic Current Visit: No - Problem List Review Problem List Initiated/Reviewed/Updated: Yes - My Orders Last 24 Hours: My Active Orders 03/07/17 09:00 Enalapril [Vasotec] 10 mg PO DAILY 03/07/17 12:05 Communication Order [RC] DAILY - Plan Plan:: 86-year-old lady with a history of hypertension, dyslipidemia, polymyalgia rheumatica. The patient underwent left knee arthroplasty on 18 Feb 2017. The patient was transferred for further physical therapy and occupational therapy in a swing bed setting. Status post left total knee arthroplasty Continue physical therapy, occupational therapy Pain control appears good DVT prophylaxis with Xarelto Postoperative anemia - treat with iron Hypertension Treat with Vasotec Hypothyroidism Treatment with Synthroid Hyponatremia Mild, likely nutritional Will follow periodically
[2017-03-07] MEDS: Acetaminophen 325 MG Tab PO PRN (14:59)
[2017-03-07] MEDS: Rivaroxaban 10 MG Tab PO SCH (18:20)
[2017-03-07] MEDS: Latanoprost 0.005% Ophth Soln 2.5 ML Bottle EYEBOTH SCH (20:24)
[2017-03-07] MEDS: Docusate Sodium 100 MG Cap PO PRN (22:17)
[2017-03-08] MEDS: Levothyroxine 50 MCG Tab PO SCH (05:24)
[2017-03-08] MEDS: Levothyroxine 25 MCG Tab PO SCH (05:24)
[2017-03-08] MEDS: Acetaminophen 325 MG Tab PO PRN ×3 (05:24→21:51)
[2017-03-08] MEDS: Psyllium Husk Powder Sugar Free 5.85 GM Packet PO SCH (09:00)
[2017-03-08] MEDS: Cholecalciferol (Vitamin D3) 400 Unit Tab PO SCH (09:01)
[2017-03-08] MEDS: Ferrous Sulfate 325 MG Tab PO SCH (09:02)
[2017-03-08] MEDS: Escitalopram 10 MG Tab PO SCH (09:03)
[2017-03-08] MEDS: Calcium Carbonate/Vitamin D3 1250 MG-200 Unit Tab PO SCH (09:03)
[2017-03-08] MEDS: Calcium Carbonate 500 MG Tab.Chew PO SCH (09:04)
[2017-03-08] MEDS: [UNRECOGNIZED DRUG - OTHER] PO SCH ×2 (09:05→21:31)
[2017-03-08] MEDS: Ondansetron 4 MG Tab.DIS PO PRN (15:41)
[2017-03-08] MEDS: Rivaroxaban 10 MG Tab PO SCH (17:46)
[2017-03-08] MEDS: Latanoprost 0.005% Ophth Soln 2.5 ML Bottle EYEBOTH SCH (21:32)
[2017-03-09] MEDS: Acetaminophen/HYDROcodone 325-10 MG Tab PO PRN ×3 (00:19→22:08)
[2017-03-09] MEDS: Levothyroxine 25 MCG Tab PO SCH (06:29)
[2017-03-09] MEDS: Levothyroxine 50 MCG Tab PO SCH (06:29)
[2017-03-09] MEDS: Calcium Carbonate 500 MG Tab.Chew PO SCH (09:03)
[2017-03-09] MEDS: Cholecalciferol (Vitamin D3) 400 Unit Tab PO SCH (09:04)
[2017-03-09] MEDS: Acetaminophen 325 MG Tab PO PRN (09:04)
[2017-03-09] MEDS: Psyllium Husk Powder Sugar Free 5.85 GM Packet PO SCH (09:04)
[2017-03-09] MEDS: Ferrous Sulfate 325 MG Tab PO SCH (09:06)
[2017-03-09] MEDS: Calcium Carbonate/Vitamin D3 1250 MG-200 Unit Tab PO SCH (09:06)
[2017-03-09] MEDS: [UNRECOGNIZED DRUG - OTHER] PO SCH ×2 (09:07→22:09)
[2017-03-09] MEDS: Escitalopram 10 MG Tab PO SCH (09:07)
[2017-03-09] MEDS: Rivaroxaban 10 MG Tab PO SCH (17:18)
[2017-03-09] MEDS: Latanoprost 0.005% Ophth Soln 2.5 ML Bottle EYEBOTH SCH (22:10)
[2017-03-10] MEDS: Levothyroxine 25 MCG Tab PO SCH (06:05)
[2017-03-10] MEDS: Levothyroxine 50 MCG Tab PO SCH (06:05)
[2017-03-10] MEDS: Ondansetron 4 MG Tab.DIS PO PRN (08:43)
[2017-03-10] MEDS: Ferrous Sulfate 325 MG Tab PO SCH (08:43)
[2017-03-10] MEDS: Cholecalciferol (Vitamin D3) 400 Unit Tab PO SCH (09:19)
[2017-03-10] MEDS: Calcium Carbonate/Vitamin D3 1250 MG-200 Unit Tab PO SCH (09:20)
[2017-03-10] MEDS: Escitalopram 10 MG Tab PO SCH (09:21)
[2017-03-10] MEDS: Calcium Carbonate 500 MG Tab.Chew PO SCH (09:21)
[2017-03-10] MEDS: Acetaminophen/HYDROcodone 325-10 MG Tab PO PRN (09:21)
[2017-03-10] MEDS: Psyllium Husk Powder Sugar Free 5.85 GM Packet PO SCH (09:23)
[2017-03-10] MEDS: [UNRECOGNIZED DRUG - OTHER] PO SCH ×2 (09:24→21:55)
[2017-03-10] MEDS: Rivaroxaban 10 MG Tab PO SCH (17:17)
[2017-03-10] MEDS: Latanoprost 0.005% Ophth Soln 2.5 ML Bottle EYEBOTH SCH (21:56)
[2017-03-10] MEDS: Acetaminophen 325 MG Tab PO PRN (21:57)
[2017-03-11] MEDS: Levothyroxine 50 MCG Tab PO SCH (05:36)
[2017-03-11] MEDS: Levothyroxine 25 MCG Tab PO SCH (05:37)
[2017-03-11 07:03] LABS: CHLORIDE,CL 98 mmol/L (101-111); SODIUM,NA 134 mmol/L (135-145)
[2017-03-11] MEDS: Ferrous Sulfate 325 MG Tab PO SCH (08:07)
[2017-03-11] MEDS: Cholecalciferol (Vitamin D3) 400 Unit Tab PO SCH (09:22)
[2017-03-11] MEDS: Calcium Carbonate/Vitamin D3 1250 MG-200 Unit Tab PO SCH (09:22)
[2017-03-11] MEDS: Acetaminophen 325 MG Tab PO PRN ×3 (09:23→21:30)
[2017-03-11] MEDS: Calcium Carbonate 500 MG Tab.Chew PO SCH (09:23)
[2017-03-11] MEDS: Docusate Sodium 100 MG Cap PO PRN (09:23)
[2017-03-11] MEDS: Escitalopram 10 MG Tab PO SCH (09:24)
[2017-03-11] MEDS: [UNRECOGNIZED DRUG - OTHER] PO SCH ×2 (09:25→21:30)
[2017-03-11] MEDS: Psyllium Husk Powder Sugar Free 5.85 GM Packet PO SCH (09:26)
--- NOTE | 2017-03-11 12:41 | PCM.PN ---
- General Info Date of Service: 03/11/17 Admission Dx/Problem (Free Text): Admission Diagnosis/Problem Admission Diagnosis/Problem Knee pain Subjective Update: continues to have mild left knee pain associated with mild swelling, pain is worse with movements was able to tolerate physical therapy. no chest pain or shortness of breath. poor appetite - Review of Systems General: Reports: Weakness. Denies: Fever Pulmonary: Denies: shortness of breath Cardiovascular: Denies: Chest Pain, Palpitations Gastrointestinal: Denies: Abdominal pain Genitourinary: Denies: dysuria Psychiatric: Denies: confusion - Patient Data Vitals - most recent: Last Vital Signs Temp 36.9 C 03/11/17 07:00 Pulse 79 03/11/17 07:00 Resp 20 03/11/17 07:00 BP 112/60 03/11/17 09:24 Pulse Ox 98 03/11/17 07:00 Weight - most recent: 73.539 kg I&O - last 24 hours: Intake & Output 03/10/17 03/11/17 03/11/17 22:59 06:59 14:59 Intake Total 120 400 120 Balance 120 400 120 Lab Results last 24 hrs: Laboratory Results - last 24 hr 03/11/17 03/11/17 Range/Units 06:04 06:04 WBC 10.3 H (5.0-10.0) 10^3/uL RBC 2.70 L (4.2-5.4) 10^6/uL Hgb 8.3 L (12.0-16.0) g/dL Hct 26.4 L (37.0-47.0) % MCV 97.8 (80-100) fL MCH 30.7 (27.0-34.0) pg MCHC 31.4 L (33.0-35.0) g/dL Plt Count 331 (150-450) 10^3/uL Neut % (Auto) 81.2 H (42.2-75.2) % Lymph % (Auto) 5.3 L (20.5-50.1) % [place] % (Auto) 12.6 H (2-8) % Eos % (Auto) 0.8 L (1.0-3.0) % Baso % (Auto) 0.1 (0.0-1.0) % Sodium 134 L (135-145) mmol/L Potassium 3.8 (3.6-5.0) mmol/L Chloride 98 L (101-111) mmol/L Carbon Dioxide 28.0 (21.0-31.0) mmol/L Anion Gap 11.8 BUN 14 (7-18) mg/dL Creatinine 0.6 (0.6-1.3) mg/dL Est Cr Clr Drug Dosing 55.20 mL/min Estimated GFR (MDRD) > 60 Glucose 105 (74-105) mg/dL Calcium 8.3 L (8.4-10.2) mg/dl Med Orders - Current: Current Medications Acetaminophen (Tylenol) 650 mg PO Q4H PRN PRN Reason: Pain (Mild 1-3)/fever Last Admin: 03/11/17 09:23 Dose: 650 mg Hydrocodone Bitart/Acetaminophen ([place] 325-10 Mg) 1 tab PO Q4H PRN PRN Reason: Pain (moderate 4-6) Last Admin: 03/10/17 09:21 Dose: 1 tab Artificial Tears (Liquitears 1.4% Ophth Soln) 0 ml EYEBOTH ASDIRECTED PRN PRN Reason: Dry Eyes Calcium Carbonate (Calcium Carbonate/Vitamin D 1250 Mg-200 Unit) 1 tab PO DAILY [facility] Last Admin: 03/11/17 09:22 Dose: 1 tab Calcium Carbonate/Glycine (Tums) 500 mg PO DAILY [facility] Last Admin: 03/11/17 09:23 Dose: 500 mg Cholecalciferol (Vitamin D3) 1,000 units PO DAILY [facility] Last Admin: 03/11/17 09:22 Dose: 1,000 units Diphenhydramine HCl (Benadryl) 12.5 mg PO ONETIME PRN PRN Reason: before blood transfusion Docusate Sodium (Colace) 100 mg PO BID PRN PRN Reason: Constipation Last Admin: 03/11/17 09:23 Dose: 100 mg Enalapril Maleate (Vasotec) 10 mg PO DAILY [facility] Last Admin: 03/11/17 09:24 Dose: 10 mg Escitalopram Oxalate (Lexapro) 10 mg PO DAILY [facility] Last Admin: 03/11/17 09:24 Dose: 10 mg Ferrous Sulfate (Ferrous Sulfate) 325 mg PO WITHBREAKFAST [facility] Last Admin: 03/11/17 08:07 Dose: 325 mg Latanoprost (Xalatan 0.005% Ophth Soln) 0 ml EYEBOTH BEDTIME [facility] Last Admin: 03/10/17 21:56 Dose: 1 drop Levothyroxine Sodium (Synthroid) 50 mcg PO DAILY@0600 [facility] Last Admin: 03/11/17 05:36 Dose: 50 mcg Levothyroxine Sodium (Levothyroxine) 12.5 mcg PO DAILY@0600 [facility] Last Admin: 03/11/17 05:37 Dose: 12.5 mcg Ondansetron HCl (Zofran Odt) 4 mg PO Q6H PRN PRN Reason: nausea, able to take PO Last Admin: 03/10/17 08:43 Dose: 4 mg Eyepromise Restore 1 (Tab Own Med) 1 each PO BID [facility] Last Admin: 03/11/17 09:25 Dose: 1 each Phenyleph/Shark Oil/Min Oil/Petrol (Preparation H Oint) 0 gm RECTAL TID PRN PRN Reason: Perineal Comfort Measure Polyethylene Glycol (Miralax) 17 gm PO DAILY PRN PRN Reason: Constipation Psyllium Husk (Metamucil Sugar Free) 1 pkt PO DAILY [facility] Last Admin: 03/11/17 09:26 Dose: Not Given Rivaroxaban (Xarelto) 10 mg PO WITHDINNER [facility] Last Admin: 03/10/17 17:17 Dose: 10 mg Senna/Docusate Sodium (Senna Plus) 1 tab PO BEDTIME PRN PRN Reason: Constipation Sodium Chloride ([place] Nasal [place]) 0 ml MARCIA BID PRN PRN Reason: Nasal Congestion Discontinued Medications Enalapril Maleate (Vasotec) 10 mg PO DAILY [facility] Last Admin: 03/06/17 11:45 Dose: Not Given Escitalopram Oxalate (Lexapro) 5 mg PO DAILY [facility] Last Admin: 03/08/17 09:03 Dose: 5 mg Hydrochlorothiazide (Hydrochlorothiazide) 25 mg PO DAILY [facility] Last Admin: 03/06/17 11:44 Dose: Not Given Multivitamins/Minerals (I-Segun) 2 each PO BID [facility] Last Admin: 02/22/17 09:04 Dose: 2 each Phenyleph/Shark Oil/Min Oil/Petrol (Preparation H Oint) 0 gm RECTAL BID PRN PRN Reason: Hemorrhoids Polyethylene Glycol (Miralax) 17 gm PO DAILY PRN PRN Reason: Constipation Sodium Chloride (Saline Flush) 10 ml FLUSH ASDIRECTED PRN PRN Reason: Keep Vein Open Last Admin: 02/26/17 13:30 Dose: 10 ml - Exam General: alert, oriented Neck: supple Lungs: Clear to auscultation, Normal respiratory effort Cardiovascular: Regular Rate, Regular Rhythm, Murmurs (systolic) Extremities: edema (trace left lower extremity) Skin: warm, dry Neurological: no new focal deficit - Problem List & Annotations (1) Status post left knee replacement SNOMED Code(s): 5132620034717, 2453804752032 Code(s): Z96.652 - PRESENCE OF LEFT ARTIFICIAL KNEE JOINT Status: Acute Current Visit: Yes (2) HTN (hypertension) SNOMED Code(s): 18360205 Code(s): I10 - ESSENTIAL (PRIMARY) HYPERTENSION Status: Chronic Current Visit: No - Problem List Review Problem List Initiated/Reviewed/Updated: Yes - Plan Plan:: 86-year-old lady with a history of hypertension, dyslipidemia, polymyalgia rheumatica. The patient underwent left knee arthroplasty on 18 Feb 2017. The patient was transferred for further physical therapy and occupational therapy in a swing bed setting. Status post left total knee arthroplasty Continue physical therapy, occupational therapy Pain control appears good DVT prophylaxis with Xarelto Postoperative anemia - treat with iron Hypertension Treat with Vasotec has borderline leukocytosis Recheck in a few days Follow for symptoms of infection Hypothyroidism Treatment with Synthroid Hyponatremia Mild, likely nutritional Will follow periodically
[2017-03-11] MEDS: Rivaroxaban 10 MG Tab PO SCH (17:21)
[2017-03-11] MEDS: Latanoprost 0.005% Ophth Soln 2.5 ML Bottle EYEBOTH SCH (21:29)
[2017-03-12] MEDS: Levothyroxine 50 MCG Tab PO SCH (05:39)
[2017-03-12] MEDS: Levothyroxine 25 MCG Tab PO SCH (05:39)
[2017-03-12] MEDS: Cholecalciferol (Vitamin D3) 400 Unit Tab PO SCH (09:01)
[2017-03-12] MEDS: Ferrous Sulfate 325 MG Tab PO SCH (09:03)
[2017-03-12] MEDS: Calcium Carbonate/Vitamin D3 1250 MG-200 Unit Tab PO SCH (09:03)
[2017-03-12] MEDS: Escitalopram 10 MG Tab PO SCH (09:03)
[2017-03-12] MEDS: Calcium Carbonate 500 MG Tab.Chew PO SCH (09:03)
[2017-03-12] MEDS: Psyllium Husk Powder Sugar Free 5.85 GM Packet PO SCH (09:03)
[2017-03-12] MEDS: [UNRECOGNIZED DRUG - OTHER] PO SCH (09:10)
[2017-03-12] MEDS: Ondansetron 4 MG Tab.DIS PO PRN (09:10)
[2017-03-12] MEDS: Acetaminophen 325 MG Tab PO PRN (11:36)
--- NOTE | 2017-03-12 13:41 | DISCH ---
FINAL DIAGNOSES: 1. Status post left total knee arthroplasty. 2. Hypertension. 3. Hypothyroidism. 4. Hyponatremia. 5. Leukocytosis. SUMMARY OF HOSPITAL COURSE: Ms. Eng, an 86-year-old female with history of hypertension, polymyalgia rheumatica, and dyslipidemia. The patient underwent left total knee arthroplasty February 18, 2007. She was transferred to [facility] for physical and occupational therapy. She has done well with physical therapy. She will be discharged on oral pain medications. She has been advised to follow up with primary care provider in 1 week. PHYSICAL EXAMINATION AT DISCHARGE: General: The patient is alert, oriented to place, time, and person. Head: Atraumatic and normocephalic. Ear, Nose, and Throat: Unremarkable. Neck: Supple. Chest: Clear to auscultation. CVS: Regular rate and rhythm. Abdomen: Soft and nontender. Extremities: No pedal edema. No finger clubbing. [facility] /[id number]
[2017-03-12 15:33] VITALS: BP 122/54
== END 2017-03-12 16:15 | disposition home or self-care (01) | DRG 560 ==
LOC: DL.MS 13:28 → UNDOADMIN 13:28 → DL.MS 16:39
PROVIDERS: ADMIT Family Medicine; ATTEND Family Medicine
PROC: 30233N1 Transfusion of Nonautologous Red Blood Cells into Peripheral Vein, Percutaneous Approach (ICD-10-PCS; principal; 2017-02-26)
DX: Z47.1 Aftercare following joint replacement surgery (principal); E87.1 Hypo-osmolality and hyponatremia; Z96.652 Presence of left artificial knee joint; I10 Essential (primary) hypertension; E03.9 Hypothyroidism, unspecified; D72.829 Elevated white blood cell count, unspecified; M35.3 Polymyalgia rheumatica; E78.00 Pure hypercholesterolemia, unspecified; F32.9 Major depressive disorder, single episode, unspecified; R53.1 Weakness; D50.0 Iron deficiency anemia secondary to blood loss (chronic); K64.9 Unspecified hemorrhoids; Z87.891 Personal history of nicotine dependence; Z88.8 Allergy status to other drugs, medicaments and biological substances; Z79.899 Other long term (current) drug therapy
CPT/HCPCS: 36415; 36430; 80048; 85014; 85018; 85025; 85027; 86850; 86870; 86900; 86901; 86920; 86922; 97110-GO; 97110-GP; 97116-GP; 97140-GP; 97161-GP; 97165-GO; 97530-GO; 97535-GO; A9270-GY; J7050; P9016

== ENCOUNTER 2017-05-22 18:10 | Emergency (ER) | payer MEDICARE ==
[2017-05-22 18:40] VITALS: BP 142/55
--- NOTE | 2017-05-22 20:07 | EDM.PDOC ---
ED HPI GENERAL MEDICAL PROBLEM - General Chief Complaint: Lower Extremity Injury/Pain Stated Complaint: FOOT PAINS, [id number] Time Seen by Provider: 05/22/17 19:55 Source of Information: Reports: Patient History Limitations: Reports: No Limitations - History of Present Illness INITIAL COMMENTS - FREE TEXT/NARRATIVE: This 86 yo female patient reports to the ED with right lateral foot pain that started this morning. The patient reports she fell out of bed this morning at 0430 or 0500. The patient reports she did hit her right forehead, right forearm and right ankle. The patient has been able to move around today, but she has continued to have pain. 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) Right Ankle Pain Score (Numeric/FACES): 8 - Related Data Allergies Allergy/AdvReac Type Severity Reaction Status Date / Time aspirin Allergy Bleeding Verified 05/22/17 18:39 NSAIDS (Non-Steroidal Allergy Bleeding Verified 05/22/17 18:39 Anti-Inflamma Home Meds: Home Meds Calcium Carbonate/Vitamin D3 [Calcium 600 + D Tablet] 1 each PO DAILY 06/18/15 [ History] Levothyroxine [Synthroid] 50 mcg PO DAILY 06/18/15 [History] Acetaminophen [Tylenol Extra Strength] 1,000 mg PO TID PRN 06/23/15 [History] Latanoprost [Xalatan 0.005% Ophth Soln] 1 drop EYEBOTH BEDTIME 06/23/15 [History ] Psyllium Husk/Aspartame [Metamucil Sugar Free] 1 packet PO DAILY 06/23/15 [ History] Enalapril/Hydrochlorothiazide [Enalapril-HCTZ 10-25 MG] 1 tab PO DAILY 05/03/16 [History] Escitalopram Oxalate [Lexapro] 5 mg PO DAILY 05/03/16 [History] Levothyroxine Sodium [Synthroid] 12.5 mcg PO DAILY 05/03/16 [History] Ferrous Sulfate 325 mg PO WITHBREAKFAST #30 tablet 05/16/16 [Rx] Cholecalciferol (Vitamin D3) [Vitamin D3] 1,000 units PO DAILY 02/20/17 [History ] Polyethylene Glycol 3350 [MiraLAX] 17 gm PO DAILY PRN 02/20/17 [History] Calcium Carbonate [Calcium] 600 mg PO DAILY 02/21/17 [History] Eyepromise Restore 1 tab PO BID 02/22/17 [History] Acetaminophen/HYDROcodone [[place] 325-10 MG] 1 tab PO Q4H PRN #30 tablet [Rx] Docusate Sodium/Sennosides [Senna Plus] 1 tab PO BEDTIME PRN #30 tablet [Rx] Past Medical History HEENT History: Reports: Cataract, Glaucoma, Macular Degeneration Other HEENT History: Sees spots in her vision at times Cardiovascular History: Reports: High Cholesterol, Hypertension Respiratory History: Reports: Bronchitis, Recurrent Gastrointestinal History: Reports: Diverticulosis, Hemorrhoids Genitourinary History: Reports: Urinary Incontinence Other Genitourinary History: Stress incontinence 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: , Spontaneous Musculoskeletal History: Reports: Fracture, Osteoarthritis, Osteoporosis, Other (See Below) Other Musculoskeletal History: polymyalgia rheumatica, Proximal humeral fracture , Distal radial Fracture, closed left hip fracture Psychiatric History: Reports: Depression Endocrine/Metabolic History: Reports: Hyperparathyroidism, Hypothyroidism, Osteopenia, Osteoporosis Other Endocrine/Metabolic History: Hypothyroidism Hematologic History: Reports: Anemia Oncologic (Cancer) History: Reports: Squamous Cell Carcinoma Other Oncologic History: Endometrial cancer Dermatologic History: Reports: None - Infectious Disease History Infectious Disease History: Reports: Chicken Pox, Measles, Mumps - Past Surgical History HEENT Surgical History: Reports: None Cardiovascular Surgical History: Reports: None Respiratory Surgical History: Reports: None GI Surgical History: Reports: Colonoscopy, Polypectomy Female Surgical History: Reports: D&C, Hysterectomy, Salpingo-Oophorectomy, Other (See Below) Other Female Surgeries/Procedures: Endometrial biopsy, lymphadenectomy ( pelvic-all negative) Endocrine Surgical History: Reports: Parathyroidectomy Musculoskeletal Surgical History: Reports: Knee Replacement Oncologic Surgical History: Reports: None Dermatological Surgical History: Reports: Skin Biopsy Social & Family History - Family History Family Medical History: Noncontributory - Tobacco Use Smoking Status *Q: Former Smoker Years of Tobacco use: 10 Packs/Tins Daily: 1 Used Tobacco, but Quit: Yes Month Tobacco Last Used: 12 Second Hand Smoke Exposure: No - Caffeine Use Caffeine Use: Reports: Coffee - Recreational Drug Use Recreational Drug Use: No - Living Situation & Occupation Living situation: Reports: , Alone Occupation: Retired Review of Systems - Review of Systems Review Of Systems: ROS reveals no pertinent complaints other than HPI. ED EXAM, GENERAL - Physical Exam Exam: See Below Exam Limited By: No Limitations General Appearance: Alert, WD/WN, No Apparent Distress Eye Exam: Bilateral Eye: EOMI, Normal Inspection, PERRL Ears: Normal External Exam, Normal Canal, Hearing Grossly Normal, Normal TMs Nose: Normal Inspection, Normal Mucosa, No Blood Throat/Mouth: Normal Inspection, Normal Lips, Normal Teeth, Normal Gums, Normal Oropharynx, Normal Voice, No Airway Compromise Head: Atraumatic, Normocephalic Neck: Normal Inspection, Supple, Non-Tender, Full Range of Motion Respiratory/Chest: No Respiratory Distress, Lungs Clear, Normal Breath Sounds, No Accessory Muscle Use, Chest Non-Tender Cardiovascular: Normal Peripheral Pulses, Regular Rate, Rhythm, No Edema, No Gallop, No JVD, No Murmur, No Rub GI/Abdominal: Normal Bowel Sounds, Soft, Non-Tender, No Organomegaly, No Distention, No Abnormal Bruit, No Mass (Female) Exam: Deferred Rectal (Female) Exam: Deferred Back Exam: Normal Inspection, Full Range of Motion, NT Extremities: Other (right lateral foot pain) Neurological: Alert, Oriented, CN II-XII Intact, Normal Cognition, Normal Gait, Normal Reflexes, No Motor/Sensory Deficits Psychiatric: Normal Affect, Normal Mood Skin Exam: Warm, Dry, Intact, Normal Color, No Rash Lymphatic: No Adenopathy Course - Vital Signs Last Recorded V/S: Last Vital Signs Temp 36.3 C 05/22/17 18:30 Pulse 76 05/22/17 18:30 Resp 18 05/22/17 18:30 BP 142/55 H 05/22/17 18:30 Pulse Ox 95 05/22/17 18:30 Departure - Departure Time of Disposition: 20:11 Disposition: Home, Self-Care 01 Condition: Fair Clinical Impression: Right ankle sprain Qualifiers: Encounter type: initial encounter Involved ligament of ankle: unspecified ligament Qualified Code(s): S93.401A - Sprain of unspecified ligament of right ankle, initial encounter - Discharge Information Instructions: Ankle Sprain, [id number] Forms: ED Department Discharge Care Plan Goals: The patient and family were advised of the examination and x-ray results during the visit. The injured ankle was wrapped with an TITO wrap while in the ED. The patient was encouraged to rest, ice and elevate the right lower extremity over the next 24 hours. If the patient has any additional symptoms or concerns, the patient should follow-up with her primary care facility or return to the emergency department.
== END 2017-05-22 20:21 | disposition home or self-care (01) ==
LOC: DL.ED 18:10
DX: S93.401A Sprain of unspecified ligament of right ankle, initial encounter (principal); M79.631 Pain in right forearm; E78.00 Pure hypercholesterolemia, unspecified; I10 Essential (primary) hypertension; F32.9 Major depressive disorder, single episode, unspecified; E03.9 Hypothyroidism, unspecified; M19.90 Unspecified osteoarthritis, unspecified site; M81.0 Age-related osteoporosis without current pathological fracture; Z87.891 Personal history of nicotine dependence; Z88.8 Allergy status to other drugs, medicaments and biological substances; Z79.899 Other long term (current) drug therapy; W06.XXXA Fall from bed, initial encounter
CPT/HCPCS: 73630-RT; 99283

== ENCOUNTER 2018-01-05 17:24 | Emergency (ER) | payer MEDICARE ==
--- NOTE | 2018-01-05 21:07 | EDM.PDOC ---
ED HPI GENERAL MEDICAL PROBLEM - General Chief Complaint: Lower Extremity Injury/Pain Stated Complaint: [id number] HURT FOOT Time Seen by Provider: 01/05/18 21:03 Source of Information: Reports: Patient History Limitations: Reports: No Limitations - History of Present Illness INITIAL COMMENTS - FREE TEXT/NARRATIVE: injured foot when stepped into snow and foot got stuck today. hurts to walk. Left Ankle Pain Score (Numeric/FACES): 4 - Related Data Allergies Allergy/AdvReac Type Severity Reaction Status Date / Time aspirin Allergy Bleeding Verified 05/22/17 18:39 NSAIDS (Non-Steroidal Allergy Bleeding Verified 05/22/17 18:39 Anti-Inflamma Home Meds: Home Meds Calcium Carbonate/Vitamin D3 [Calcium 600 + D Tablet] 1 each PO DAILY 06/18/15 [ History] Levothyroxine [Synthroid] 50 mcg PO DAILY 06/18/15 [History] Acetaminophen [Tylenol Extra Strength] 1,000 mg PO TID PRN 06/23/15 [History] Latanoprost [Xalatan 0.005% Ophth Soln] 1 drop EYEBOTH BEDTIME 06/23/15 [History ] Psyllium Husk/Aspartame [Metamucil Sugar Free] 1 packet PO ASDIRECTED PRN [History] Enalapril/Hydrochlorothiazide [Enalapril-HCTZ 10-25 MG] 1 tab PO DAILY 05/03/16 [History] Escitalopram Oxalate [Lexapro] 5 mg PO DAILY 05/03/16 [History] Levothyroxine Sodium [Synthroid] 12.5 mcg PO DAILY 05/03/16 [History] Ferrous Sulfate 325 mg PO WITHBREAKFAST #30 tablet 05/16/16 [Rx] Polyethylene Glycol 3350 [MiraLAX] 17 gm PO DAILY PRN 02/20/17 [History] Eyepromise Restore 1 tab PO BID 02/22/17 [History] Docusate Sodium/Sennosides [Senna Plus] 1 tab PO BEDTIME PRN #30 tablet [Rx] Past Medical History HEENT History: Reports: Cataract, Glaucoma, Macular Degeneration Other HEENT History: Sees spots in her vision at times Cardiovascular History: Reports: High Cholesterol, Hypertension Respiratory History: Reports: Bronchitis, Recurrent Gastrointestinal History: Reports: Diverticulosis, Hemorrhoids Genitourinary History: Reports: Urinary Incontinence Other Genitourinary History: Stress incontinence 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: , Spontaneous Musculoskeletal History: Reports: Fracture, Osteoarthritis, Osteoporosis, Other (See Below) Other Musculoskeletal History: polymyalgia rheumatica, Proximal humeral fracture , Distal radial Fracture, closed left hip fracture Psychiatric History: Reports: Depression Endocrine/Metabolic History: Reports: Hyperparathyroidism, Hypothyroidism, Osteopenia, Osteoporosis Other Endocrine/Metabolic History: Hypothyroidism Hematologic History: Reports: Anemia Oncologic (Cancer) History: Reports: Squamous Cell Carcinoma Other Oncologic History: Endometrial cancer Dermatologic History: Reports: None - Infectious Disease History Infectious Disease History: Reports: Chicken Pox, Measles, Mumps - Past Surgical History HEENT Surgical History: Reports: None Cardiovascular Surgical History: Reports: None Respiratory Surgical History: Reports: None GI Surgical History: Reports: Colonoscopy, Polypectomy Female Surgical History: Reports: D&C, Hysterectomy, Salpingo-Oophorectomy, Other (See Below) Other Female Surgeries/Procedures: Endometrial biopsy, lymphadenectomy ( pelvic-all negative) Endocrine Surgical History: Reports: Parathyroidectomy Musculoskeletal Surgical History: Reports: Knee Replacement Oncologic Surgical History: Reports: None Dermatological Surgical History: Reports: Skin Biopsy Social & Family History - Family History Family Medical History: Noncontributory - Tobacco Use Smoking Status *Q: Former Smoker Years of Tobacco use: 10 Packs/Tins Daily: 1 Used Tobacco, but Quit: Yes Month/Year Tobacco Last Used: 12 Second Hand Smoke Exposure: No - Caffeine Use Caffeine Use: Reports: Coffee - Recreational Drug Use Recreational Drug Use: No - Living Situation & Occupation Living situation: Reports: , Alone Occupation: Retired Review of Systems - Review of Systems Review Of Systems: ROS reveals no pertinent complaints other than HPI. ED EXAM, GENERAL - Physical Exam Exam: See Below Exam Limited By: No Limitations General Appearance: Alert, WD/WN, Mild Distress, Other (discomfort) Ears: Hearing Grossly Normal Throat/Mouth: Normal Voice, No Airway Compromise Head: Atraumatic Neck: Non-Tender, Full Range of Motion Respiratory/Chest: No Respiratory Distress Cardiovascular: Regular Rate, Rhythm GI/Abdominal: Soft, Non-Tender Extremities: Other (tender on R/P, NV wnl, gait limited to pain) Neurological: Alert, Oriented, Normal Cognition, No Motor/Sensory Deficits Psychiatric: Flat Affect Skin Exam: Warm, Dry, Normal Color Lymphatic: No Adenopathy Course - Vital Signs Last Recorded V/S: Last Vital Signs Temp 37.2 C 01/05/18 18:17 Pulse 69 01/05/18 18:17 Resp 20 01/05/18 18:17 BP 172/64 H 01/05/18 18:17 Pulse Ox 98 01/05/18 18:17 - Orders/Labs/Meds Orders: Active Orders 24 hr Category Date Time Status Acetaminophen/HYDROcodone [[place] 325-10 MG] Med 01/05/18 21:12 Once 1 tab PO ONETIME ONE Medication Orders Hydrocodone Bitart/Acetaminophen ([place] 325-10 Mg) 1 tab PO ONETIME ONE Stop: 01/05/18 21:13 Meds: Medications Generic Name Dose Route Start Last Admin Trade Name David PRN Reason Stop Dose Admin Hydrocodone Bitart/Acetaminophen 1 tab 01/05/18 21:12 [place] 325-10 Mg PO 01/05/18 21:13 ONETIME ONE - Re-Assessments/Exams Free Text/Narrative Re-Assessment/Exam: 01/05/18 21:13 results discussed with pt & family Departure - Departure Time of Disposition: 21:13 Disposition: Home, Self-Care 01 Condition: Good Clinical Impression: Fracture of fibula - Discharge Information Instructions: Ankle Fracture, [id number] Forms: ED Department Discharge Additional Instructions: 1) wear cam boot and use walker 2) see clinic tomorrow for ORTHOPEDIC REFERRAL for ankle fracture 3) elevate leg as much as possible 4) recheck as needed - My Orders Last 24 Hours: My Active Orders 01/05/18 21:12 Acetaminophen/HYDROcodone [[place] 325-10 MG] 1 tab PO ONETIME ONE - Assessment/Plan Last 24 Hours: My Active Orders 01/05/18 21:12 Acetaminophen/HYDROcodone [[place] 325-10 MG] 1 tab PO ONETIME ONE
[2018-01-05] MEDS ORDERED: Acetaminophen/HYDROcodone 325-10 MG Tab PO ONE (21:12)
[2018-01-05 21:22] VITALS: BP 159/86
== END 2018-01-05 21:41 | disposition home or self-care (01) ==
LOC: DL.ED 17:24
DX: S82.55XA Nondisplaced fracture of medial malleolus of left tibia, initial encounter for closed fracture (principal); E78.00 Pure hypercholesterolemia, unspecified; I10 Essential (primary) hypertension; E03.9 Hypothyroidism, unspecified; Z88.6 Allergy status to analgesic agent; Z79.899 Other long term (current) drug therapy; Z87.891 Personal history of nicotine dependence; W22.8XXA Striking against or struck by other objects, initial encounter
CPT/HCPCS: 73610-LT; 73650-LT; 99283; A9270-GY

== ENCOUNTER 2020-08-09 09:45 | Day surgery (SDC) | payer MEDICARE ==
[~2020-08-09 09:45] MED LIST changes: +Acetaminophen 325 MG Tab PO PRN; +Cataract Ophth Solution EYERT ONE; +Moxifloxacin 0.5% Ophth Soln 3 ML Bottle EYERT ONE; +Ondansetron 4 MG/2 ML SDV IVPUSH PRN; +Phenylephrine 10% Ophth Soln 5 ML Bot EYERT ONE; +Phenylephrine 10% Ophth Soln 5 ML Bot EYERT PRN; -Polyethylene Glycol 3350 Powder 17 GM Packet PO PRN; -Polyvinyl Alcohol 1.4% Ophth Soln 15 ML Bottle EYEBOTH PRN; +Povidone-Iodine 5% Sterile Ophth Soln 30 ML Bottle EYERT ONE; +Proparacaine 0.5% Ophth Soln 15 ML Bottle EYERT ONE; -Sodium Chloride 0.65% Nasal Spray 45 ML Bottle NAS PRN; +Sodium Chloride 0.9% 10 ML Syringe FLUSH PRN; +Timolol Maleate 0.5% Ophth Soln 5 ML Bottle EYERT ONE; +Tropicamide 1% Ophth Soln 15 ML Bottle EYERT ONE
[2020-08-09] MEDS ORDERED: Sodium Chloride 0.9% 10 ML Syringe IV ONE (09:46)
[2020-08-09] MEDS ORDERED: Dexamethasone 4 MG/ML SDV IV ONE (09:46)
[2020-08-09] MEDS ORDERED: Midazolam 1 MG/ML 2 ML SDV IV ONE (09:46)
[2020-08-09] MEDS ORDERED: Lidocaine 1% 30 ML SDV ONE (10:56)
[2020-08-09] MEDS ORDERED: Phenylephrine 10% Ophth Soln 5 ML Bot EYERT ONE (10:57)
[2020-08-09] MEDS ORDERED: Diclofenac Sodium 0.1% Ophth Soln 5 ML Bottle EYERT ONE (10:57)
[2020-08-09] MEDS ORDERED: Apraclonidine 0.5% Ophth Soln 5 ML Bot EYERT ONE (10:57)
[2020-08-09] MEDS ORDERED: Tetracaine HCl/PF 0.5% 4 ML Bottle EYERT ONE (10:57)
[2020-08-09] MEDS ORDERED: Vancomycin 500 MG SDV EYERT ONE (11:01)
[2020-08-09] MEDS ORDERED: Balanced Salt Solution Ophth Irrig 500 ML Bottle IOCULAR ONE (11:02)
[2020-08-09] MEDS ORDERED: Chondroitin Sulfate/Hyaluronate Sodium Ophth Inj 0.75 ML Syringe EYERT ONE (11:02)
[2020-08-09] MEDS ORDERED: Povidone-Iodine 5% Sterile Ophth Soln 30 ML Bottle EYERT ONE (11:03)
[2020-08-09 12:01] VITALS: BP 129/57; PULSE 71
--- NOTE | 2020-08-10 10:29 | OR ---
DATE: 08/09/2020 PREOPERATIVE DIAGNOSIS: Visually significant mixed cataract, right eye. POSTOPERATIVE DIAGNOSIS: Visually significant mixed cataract, right eye. PROCEDURE: Extracapsular cataract extraction with intraocular lens implant, right eye. ANESTHESIA: Topical/local MAC. COMPLICATIONS: None. INDICATION: Ms. Blank was seen in the clinic with complaints of blurred vision. Examination revealed visually significant mixed cataract. I explained options, offered cataract surgery, and I explained risks, including, but not limited to, infection, retinal detachment, loss of vision, need for additional surgery, and risks associated with anesthesia. We discussed implant options. She has requested a monofocal implant. She is comfortable wearing glasses following surgery if necessary. OPERATIVE DESCRIPTION: After informed consent was obtained and the risks, benefits, and alternatives were explained, the patient was brought to the operative suite and topical anesthesia was administered. The patient was then prepped and draped in the sterile fashion and attention was placed on the right eye. A sterile lid speculum was placed into the right eye to allow operative exposure. A full-thickness paracentesis was made in the temporal portion of the operative eye. Preservative-free lidocaine 0.1 mL was injected into the anterior chamber followed by viscoelastic. A full-thickness corneal incision was then made into the anterior chamber. A bent needle cystotome was used to create a small olu in the anterior capsule. The capsulorrhexis forceps was then used to create a 360-degree curvilinear capsulorrhexis. The nucleus was then removed using a phacoemulsification handpiece and the remaining cortical material was then removed with irrigation and aspiration handpiece. Following removal of the cortical material, the capsular bag was then inspected and noted to be free of any holes or tears. Viscoelastic was then injected into the capsular bag and the intraocular lens was inserted into the capsular bag. The viscoelastic material was then removed from both the anterior and posterior chambers and from behind the IOL. The lens and capsular bag were then reinspected. The IOL was well centered and the capsular bag intact. The wound and paracentesis sites were inspected and hydrated with balanced saline solution. Both were found to be self- sealing. The intraocular pressure was assessed digitally and found to be within normal range. A good red reflex was noted at the completion of the procedure. No complications occurred during the operation. At the completion of the procedure, Maxitrol, Voltaren, and Iopidine drops were placed into the operative eye. A sterile eye shield was placed over the operative eye and the patient was transported to the postoperative recovery area having tolerated the procedure well. Postoperative instructions were given along with a postoperative appointment. The patient was advised to call with any questions or concerns. [facility] /[id number]
== END 2020-08-09 12:15 | disposition home or self-care (01) ==
LOC: DL.SDS 09:45
PROVIDERS: ATTEND Ophthalmology
DX: H25.811 Combined forms of age-related cataract, right eye (principal); E78.5 Hyperlipidemia, unspecified; I10 Essential (primary) hypertension; E03.9 Hypothyroidism, unspecified; E21.3 Hyperparathyroidism, unspecified; D64.9 Anemia, unspecified; R01.1 Cardiac murmur, unspecified; Z98.890 Other specified postprocedural states; Z79.890 Hormone replacement therapy; Z88.8 Allergy status to other drugs, medicaments and biological substances; Z87.891 Personal history of nicotine dependence
CPT/HCPCS: 66984; J1100; J2001; J2250; J3370; V2632

== ENCOUNTER 2020-11-01 07:55 | Day surgery (SDC) | payer MEDICARE ==
[~2020-11-01 07:55] MED LIST changes: +Cataract Ophth Solution EYELF ONE; -Cataract Ophth Solution EYERT ONE; +Moxifloxacin 0.5% Ophth Soln 3 ML Bottle EYELF ONE; -Moxifloxacin 0.5% Ophth Soln 3 ML Bottle EYERT ONE; +Phenylephrine 10% Ophth Soln 5 ML Bot EYELF ONE; +Phenylephrine 10% Ophth Soln 5 ML Bot EYELF PRN; -Phenylephrine 10% Ophth Soln 5 ML Bot EYERT ONE; -Phenylephrine 10% Ophth Soln 5 ML Bot EYERT PRN; +Povidone-Iodine 5% Sterile Ophth Soln 30 ML Bottle EYELF ONE; -Povidone-Iodine 5% Sterile Ophth Soln 30 ML Bottle EYERT ONE; +Proparacaine 0.5% Ophth Soln 15 ML Bottle EYELF ONE; -Proparacaine 0.5% Ophth Soln 15 ML Bottle EYERT ONE; +Timolol Maleate 0.5% Ophth Soln 5 ML Bottle EYELF ONE; -Timolol Maleate 0.5% Ophth Soln 5 ML Bottle EYERT ONE; +Tropicamide 1% Ophth Soln 15 ML Bottle EYELF ONE; -Tropicamide 1% Ophth Soln 15 ML Bottle EYERT ONE
[2020-11-01] MEDS ORDERED: Sodium Chloride 0.9% 10 ML Syringe IV ONE (07:56)
[2020-11-01] MEDS ORDERED: Midazolam 1 MG/ML 2 ML SDV IV ONE (07:56)
[2020-11-01] MEDS ORDERED: Dexamethasone 4 MG/ML SDV IV ONE (07:56)
[2020-11-01] MEDS ORDERED: Moxifloxacin 0.5% Ophth Soln 3 ML Bottle EYELF ONE (08:00)
[2020-11-01] MEDS ORDERED: Phenylephrine 10% Ophth Soln 5 ML Bot EYELF ONE (08:00)
[2020-11-01] MEDS ORDERED: Proparacaine 0.5% Ophth Soln 15 ML Bottle EYELF ONE (08:00)
[2020-11-01] MEDS ORDERED: Tropicamide 1% Ophth Soln 15 ML Bottle EYELF ONE (08:00)
[2020-11-01] MEDS ORDERED: Ondansetron 4 MG/2 ML SDV IVPUSH PRN (08:00)
[2020-11-01] MEDS ORDERED: Timolol Maleate 0.5% Ophth Soln 5 ML Bottle EYELF ONE (08:00)
[2020-11-01] MEDS ORDERED: Acetaminophen 325 MG Tab PO PRN (08:00)
[2020-11-01] MEDS ORDERED: Phenylephrine 10% Ophth Soln 5 ML Bot EYELF PRN (08:00)
[2020-11-01] MEDS ORDERED: Cataract Ophth Solution EYELF ONE (08:00)
[2020-11-01] MEDS ORDERED: Povidone-Iodine 5% Sterile Ophth Soln 30 ML Bottle EYELF ONE ×2 (08:00→09:20)
[2020-11-01] MEDS ORDERED: Lidocaine 1% 30 ML SDV ONE (09:20)
[2020-11-01] MEDS ORDERED: Tetracaine HCl/PF 0.5% 4 ML Bottle EYELF ONE (09:20)
[2020-11-01] MEDS ORDERED: Chondroitin Sulfate/Hyaluronate Sodium Ophth Inj 0.75 ML Syringe EYELF ONE (09:21)
[2020-11-01] MEDS ORDERED: Balanced Salt Solution Ophth Irrig 500 ML Bottle IOCULAR ONE (09:21)
[2020-11-01] MEDS ORDERED: Apraclonidine 0.5% Ophth Soln 5 ML Bot EYELF ONE (09:21)
[2020-11-01] MEDS ORDERED: Dexamethasone/Neomycin/Polymyxin B Ophth Oint 3.5 GM Tube EYELF ONE (09:21)
[2020-11-01] MEDS ORDERED: Diclofenac Sodium 0.1% Ophth Soln 5 ML Bottle EYELF ONE (09:21)
[2020-11-01] MEDS ORDERED: Vancomycin 500 MG SDV EYELF ONE (09:22)
[2020-11-01 13:12] VITALS: BP 152/61; PULSE 70
--- NOTE | 2020-11-01 15:22 | OR ---
DATE: 11/01/2020 PREOPERATIVE DIAGNOSIS: Visually significant mixed cataract, left eye. POSTOPERATIVE DIAGNOSIS: Visually significant mixed cataract, left eye. PROCEDURE: Extracapsular cataract extraction with intraocular lens implant, left eye. ANESTHESIA: Topical/local MAC. COMPLICATIONS: None. INDICATION: Ms. Blank was seen in the clinic. She is complaining of a blurred vision, difficulty threading a needle, and needing to use a magnifying machine in order to see. Her examination revealed visually significant mixed cataract. She also has a history of age-related macular degeneration. I explained options, offered cataract surgery, and I explained risks, including, but not limited to, infection, retinal detachment, loss of vision, need for additional surgery, and risks associated with anesthesia. She saw her regular grain commodity manager, Dr. Montes De Oca, who was not able to improve her vision with a change in glasses. We discussed implant options, and I recommended a monofocal implant. She understands that her visual potential will be limited by retinal health. OPERATIVE DESCRIPTION: After informed consent was obtained and the risks, benefits, and alternatives were explained, the patient was brought to the operative suite and topical anesthesia was administered. The patient was then prepped and draped in the sterile fashion and attention was placed on the left eye. A sterile lid speculum was placed into the left eye to allow operative exposure. A full-thickness paracentesis was made in the temporal portion of the operative eye. Preservative-free lidocaine 0.1 mL was injected into the anterior chamber followed by viscoelastic. A full-thickness corneal incision was then made into the anterior chamber. A bent needle cystotome was used to create a small olu in the anterior capsule. The capsulorrhexis forceps was then used to create a 360-degree curvilinear capsulorrhexis. The nucleus was then removed using a phacoemulsification handpiece and the remaining cortical material was then removed with irrigation and aspiration handpiece. Following removal of the cortical material, the capsular bag was then inspected and noted to be free of any holes or tears. Viscoelastic was then injected into the capsular bag and the intraocular lens was inserted into the capsular bag. The viscoelastic material was then removed from both the anterior and posterior chambers and from behind the IOL. The lens and capsular bag were then reinspected. The IOL was well centered and the capsular bag intact. The wound and paracentesis sites were inspected and hydrated with balanced saline solution. Both were found to be self- sealing. The intraocular pressure was assessed digitally and found to be within normal range. A good red reflex was noted at the completion of the procedure. No complications occurred during the operation. At the completion of the procedure, Maxitrol, Voltaren, and Iopidine drops were placed into the operative eye. A sterile eye shield was placed over the operative eye and the patient was transported to the postoperative recovery area having tolerated the procedure well. Postoperative instructions were given along with a postoperative appointment. The patient was advised to call with any questions or concerns. [facility] /[id number]
== END 2020-11-01 10:31 | disposition home or self-care (01) ==
LOC: DL.SDS 07:55
PROVIDERS: ATTEND Ophthalmology
DX: H26.8 Other specified cataract (principal); E78.5 Hyperlipidemia, unspecified; I10 Essential (primary) hypertension; E03.9 Hypothyroidism, unspecified; E21.3 Hyperparathyroidism, unspecified; I35.0 Nonrheumatic aortic (valve) stenosis; E66.9 Obesity, unspecified; Z98.890 Other specified postprocedural states; Z79.899 Other long term (current) drug therapy; Z79.890 Hormone replacement therapy; Z88.8 Allergy status to other drugs, medicaments and biological substances; Z87.891 Personal history of nicotine dependence; Z68.31 Body mass index [BMI] 31.0-31.9, adult
CPT/HCPCS: 00142; 66984; A9270; J1100; J2001; J2250; J3370; V2632

== ENCOUNTER 2021-01-12 12:53 | Observation (INO) | payer MEDICARE ==
[2021-01-12] MEDS ORDERED: Sodium Chloride 0.9% 10 ML Syringe FLUSH PRN (13:34)
[2021-01-12] MEDS ORDERED: HYDROmorphone 0.5 MG/0.5 ML Syringe IVPUSH ONE (13:35)
[2021-01-12] MEDS ORDERED: Ondansetron 4 MG/2 ML SDV IV ONE (13:35)
[2021-01-12] MEDS ORDERED: Famotidine 20 MG/2 ML SDV IVPUSH ONE (13:35)
[2021-01-12] MEDS ORDERED: Sodium Chloride 0.9% 500 ML IV SCH (13:45)
[2021-01-12 13:51] LABS: ANION GAP 13.5 mEq/L (7-13); CHLORIDE,CL 100 mmol/L (98-107); SODIUM,NA 141 mmol/L (136-145)
[2021-01-12] MEDS ORDERED: Iopamidol 612 MG/ML 100 ML Bottle IVPUSH ONE (14:19)
--- NOTE | 2021-01-12 14:30 | EDM.PDOC ---
<Jose Daniel Jaimes Armani - Last Filed: 01/12/21 16:38> ED HPI GENERAL MEDICAL PROBLEM - General Chief Complaint: Gastrointestinal Problem Stated Complaint: VOMMITING STOMACHE PAIN GETTING WORSE Time Seen by Provider: 01/12/21 13:30 Source of Information: Reports: Patient History Limitations: Reports: No Limitations - History of Present Illness INITIAL COMMENTS - FREE TEXT/NARRATIVE: 89 y/o F c/o abd pn with associated vomiting that started this morning after eating. The pain constant 10/10, sharp in nature and located in the bilateral lower abd. No hx of similar pain in the past. She states she is still able to pass flatus but has not had a bowel movement. Still has her appendix and gall bladder. Denies fever, cough, chills, drugs, etoh, cp, db, flank pn, pelvic pain, vaginal discharge, extremity pain. Onset: Today, Sudden Duration: Hour(s): Location: Reports: Abdomen Quality: Reports: Sharp Improves with: Reports: None Worsens with: Reports: Movement Associated Symptoms: Reports: Nausea/Vomiting Upper Abdominal Pain Score (Numeric/FACES): 9 - Related Data Allergies Allergy/AdvReac Type Severity Reaction Status Date / Time aspirin Allergy Bleeding Verified 01/12/21 13:13 NSAIDS (Non-Steroidal Allergy Bleeding Verified 01/12/21 13:13 Anti-Inflamma Home Meds: Home Meds Calcium Carbonate/Vitamin D3 [Calcium 600 + D Tablet] 1 each PO DAILY 06/18/15 [History] Acetaminophen [Tylenol Extra Strength] 1,000 mg PO TID PRN 06/23/15 [History] Latanoprost [Xalatan 0.005% Ophth Soln] 1 drop EYEBOTH BEDTIME 06/23/15 [History] Psyllium Husk/Aspartame [Metamucil Sugar Free] 1 packet PO ASDIRECTED PRN 06/23/15 [History] Escitalopram Oxalate [Lexapro] 10 mg PO DAILY 05/03/16 [History] Levothyroxine Sodium [Synthroid] 75 mcg PO DAILY 05/03/16 [History] Eyepromise Restore 1 tab PO BID 02/22/17 [History] Alendronate Sodium [Fosamax] 70 mg PO .WEEKLY 07/24/20 [History] Cholecalciferol (Vitamin D3) [Vitamin D3] 3,000 unit PO DAILY 07/24/20 [History] Fosinopril Sodium 20 mg PO DAILY 07/24/20 [History] hydroCHLOROthiazide [Hydrochlorothiazide] 50 mg PO DAILY 07/24/20 [History] Ketorolac [Acular 0.5% Ophth Soln] 1 drop EYELF ASDIRECTED 08/01/20 [History] Ofloxacin [Ocuflox 0.3% Ophth Soln] 1 drop EYELF ASDIRECTED 08/01/20 [History] Prednisolone Acetate/Pf [Prednisolone Acet 1% Eye Drop] 1 drop EYELF ASDIRECTED 08/01/20 [History] A,C,E/Zinc/Sod Tiffani/Manjinder/Lutein [Eye Multivitamin-Lutein Tablet] 1 tab PO DAILY 09/13/20 [History] Past Medical History HEENT History: Reports: Cataract, Glaucoma, Macular Degeneration Other HEENT History: Sees spots in her vision at times Cardiovascular History: Reports: Heart Murmur, High Cholesterol, Hypertension Respiratory History: Reports: Bronchitis, Recurrent Gastrointestinal History: Reports: Diverticulosis, Hemorrhoids, Other (See Below) Other Gastrointestinal History: HX OF DIVERTICULITIS OF COLON Genitourinary History: Reports: Urinary Incontinence Other Genitourinary History: Stress incontinence INDUSTRIAL WELDER History: Reports: , Spontaneous Musculoskeletal History: Reports: Fracture, Osteoarthritis, Osteoporosis, Other (See Below) Other Musculoskeletal History: polymyalgia rheumatica, Proximal humeral fracture, Distal radial Fracture, closed left hip fracture Neurological History: Reports: None Psychiatric History: Reports: Depression Endocrine/Metabolic History: Reports: Hyperparathyroidism, Hypothyroidism, Osteopenia, Osteoporosis Other Endocrine/Metabolic History: Hypothyroidism Hematologic History: Reports: Anemia Immunologic History: Reports: None Oncologic (Cancer) History: Reports: Squamous Cell Carcinoma, Other (See Below) Other Oncologic History: Endometrial cancer Dermatologic History: Reports: None - Infectious Disease History Infectious Disease History: Reports: Chicken Pox, Measles, Mumps - Past Surgical History HEENT Surgical History: Reports: Cataract Surgery Cardiovascular Surgical History: Reports: None Respiratory Surgical History: Reports: None GI Surgical History: Reports: Colonoscopy, Polypectomy Other GI Surgeries/Procedures: polypectomy Female Surgical History: Reports: D&C, Hysterectomy, Salpingo-Oophorectomy, Other (See Below) Other Female Surgeries/Procedures: Endometrial biopsy, lymphadenectomy (pelvic-all negative) Endocrine Surgical History: Reports: Parathyroidectomy, Other (See Below) Other Endocrine Surgeries/Procedures: Parathyroidectomy. LYMPHADENECTOMY PELVIC Neurological Surgical History: Reports: None Musculoskeletal Surgical History: Reports: Knee Replacement, Other (See Below) Other Musculoskeletal Surgeries/Procedures:: HIP SURGERY Oncologic Surgical History: Reports: None Dermatological Surgical History: Reports: Skin Biopsy Social & Family History - Family History Family Medical History: No Pertinent Family History - Tobacco Use Tobacco Use Status *Q: Never Tobacco User - Caffeine Use Caffeine Use: Reports: Coffee - Recreational Drug Use Recreational Drug Use: No - Living Situation & Occupation Living situation: Reports: , Alone Occupation: Retired ED ROS GENERAL - Review of Systems Review Of Systems: Comprehensive ROS is negative, except as noted in HPI. ED EXAM, GI/ABD - Physical Exam Exam: See Below Exam Limited By: No Limitations General Appearance: Alert, WD/WN, No Apparent Distress Throat/Mouth: Normal Inspection, Normal Lips, Normal Teeth, Normal Gums, Normal Oropharynx, Normal Voice, No Airway Compromise Head: Atraumatic, Normocephalic Neck: Normal Inspection, Supple, Non-Tender, Full Range of Motion Respiratory/Chest: No Respiratory Distress, Lungs Clear, Normal Breath Sounds, No Accessory Muscle Use, Chest Non-Tender Cardiovascular: Normal Peripheral Pulses, Regular Rate, Rhythm, No Edema, No Gallop, No JVD, No Murmur, No Rub GI/Abdominal Exam: Soft, Tender (diffuse tenderness over the lower abdominal quadrants with no rebound) (Female) Exam: Deferred Rectal (Female) Exam: Deferred Extremities: Normal Inspection, Normal Range of Motion, Non-Tender, Normal Capillary Refill, No Pedal Edema Neurological: Alert, Oriented, CN II-XII Intact, Normal Cognition, Normal Gait, Normal Reflexes, No Motor/Sensory Deficits Psychiatric: Normal Affect, Normal Mood Skin Exam: Warm, Dry, Intact, Normal Color, No Rash Lymphatic: No Adenopathy Departure - Departure Time of Disposition: 16:38 Disposition: Refer to Observation Condition: Fair Clinical Impression: Kidney stone on right side, Cholelithiasis without cholecystitis - Discharge Information *PRESCRIPTION DRUG MONITORING PROGRAM REVIEWED*: Not Applicable *COPY OF PRESCRIPTION DRUG MONITORING REPORT IN PATIENT MERNA: Not Applicable Sepsis Event Note (ED) - Evaluation Sepsis Screening Result: No Definite Risk <Eduardo Thomas - Last Filed: 01/12/21 16:42> Course - Vital Signs Last Recorded V/S: Last Vital Signs Temp 97.2 F 01/12/21 13:11 Pulse 75 01/12/21 13:11 Resp 18 01/12/21 13:11 BP 162/60 H 01/12/21 13:11 Pulse Ox 97 01/12/21 13:11 - Orders/Labs/Meds Orders: Active Orders 24 hr Category Date Time Status Peripheral IV Care [RC] . DIRECTED Care 01/12/21 13:35 Active CULTURE URINE [RM] Stat Lab 01/12/21 16:15 Received UA W/MICROSCOPIC [URIN] Stat Lab 01/12/21 16:15 Results Sodium Chloride 0.9% [Normal Saline] 500 ml Med 01/12/21 13:45 Active IV .BOLUS Sodium Chloride 0.9% [Saline Flush] Med 01/12/21 13:34 Active 10 ml FLUSH ASDIRECTED PRN Peripheral IV Insertion Adult [OM.PC] Stat Oth 01/12/21 13:35 Ordered Medication Orders Sodium Chloride (Normal Saline) 500 mls @ 250 mls/hr IV .BOLUS MARTINEZ Last Admin: 01/12/21 13:51 Dose: 250 mls/hr Documented by: [id number] Sodium Chloride (Sodium Chloride 0.9% 10 Ml Syringe) 10 ml FLUSH ASDIRECTED PRN PRN Reason: Keep Vein Open Last Admin: 01/12/21 13:51 Dose: 10 ml Documented by: [id number] Labs: Laboratory Tests 01/12/21 01/12/21 01/12/21 Range/Units 13:25 13:25 13:25 WBC 10.0 (5.0-10.0) 10^3/uL RBC 4.12 L (4.2-5.4) 10^6/uL Hgb 12.6 D (12.0-16.0) g/dL Hct 38.1 (37.0-47.0) % MCV 92.5 D (80-100) fL MCH 30.6 (27.0-34.0) pg MCHC 33.1 (33.0-35.0) g/dL Plt Count 175 D (150-450) 10^3/uL Neut % (Auto) 86.6 H (42.2-75.2) % Lymph % (Auto) 6.5 L (20.5-50.1) % Edgar % (Auto) 6.1 (2-8) % Eos % (Auto) 0.4 L (1.0-3.0) % Baso % (Auto) 0.4 (0.0-1.0) % Sodium 141 (136-145) mmol/L Potassium 3.5 (3.5-5.1) mmol/L Chloride 100 (98-107) mmol/L Carbon Dioxide 31 (21-32) mmol/L Anion Gap 13.5 H (7-13) mEq/L BUN 22 H (7-18) mg/dL Creatinine 0.87 (0.55-1.02) mg/dL Est Cr Clr Drug Dosing 35.35 mL/min Estimated GFR (MDRD) > 60 BUN/Creatinine Ratio 25.3 (No establ ref range) Glucose 138 H (74-99) mg/dL Lactic Acid 1.3 (0.4-2.0) mmol/L Calcium 9.3 (8.5-10.1) mg/dL Total Bilirubin 1.3 H (0.2-1.0) mg/dL AST 114 H (15-37) U/L ALT 72 H (14-59) U/L Alkaline Phosphatase 73 (46-116) U/L Total Protein 6.9 (6.4-8.2) g/dL Albumin 3.6 (3.4-5.0) g/dL Globulin 3.3 Albumin/Globulin Ratio 1.1 Amylase 63 (25-115) U/L Lipase 221 (73-393) U/L Urine Color (YELLOW) Urine Appearance (CLEAR) Urine pH (5.0-9.0) Ur Specific [place] (1.005-1.030) Urine Protein (NEGATIVE) Urine Glucose (UA) (NEGATIVE) Urine Ketones (NEGATIVE) Urine Occult Blood (NEGATIVE) Urine Nitrite (NEGATIVE) Urine Bilirubin (NEGATIVE) Urine Urobilinogen (0.2-1.0) mg/dL Ur Leukocyte Esterase (NEGATIVE) 01/12/21 Range/Units 16:15 WBC (5.0-10.0) 10^3/uL RBC (4.2-5.4) 10^6/uL Hgb (12.0-16.0) g/dL Hct (37.0-47.0) % MCV (80-100) fL MCH (27.0-34.0) pg MCHC (33.0-35.0) g/dL Plt Count (150-450) 10^3/uL Neut % (Auto) (42.2-75.2) % Lymph % (Auto) (20.5-50.1) % Edgar % (Auto) (2-8) % Eos % (Auto) (1.0-3.0) % Baso % (Auto) (0.0-1.0) % Sodium (136-145) mmol/L Potassium (3.5-5.1) mmol/L Chloride (98-107) mmol/L Carbon Dioxide (21-32) mmol/L Anion Gap (7-13) mEq/L BUN (7-18) mg/dL Creatinine (0.55-1.02) mg/dL Est Cr Clr Drug Dosing mL/min Estimated GFR (MDRD) BUN/Creatinine Ratio (No establ ref range) Glucose (74-99) mg/dL Lactic Acid (0.4-2.0) mmol/L Calcium (8.5-10.1) mg/dL Total Bilirubin (0.2-1.0) mg/dL AST (15-37) U/L ALT (14-59) U/L Alkaline Phosphatase (46-116) U/L Total Protein (6.4-8.2) g/dL Albumin (3.4-5.0) g/dL Globulin Albumin/Globulin Ratio Amylase (25-115) U/L Lipase (73-393) U/L Urine Color Yellow (YELLOW) Urine Appearance Slightly cloudy (CLEAR) Urine pH 6.5 (5.0-9.0) Ur Specific [place] 1.025 (1.005-1.030) Urine Protein Negative (NEGATIVE) Urine Glucose (UA) Negative (NEGATIVE) Urine Ketones Negative (NEGATIVE) Urine Occult Blood Trace-intact H (NEGATIVE) Urine Nitrite Negative (NEGATIVE) Urine Bilirubin Negative (NEGATIVE) Urine Urobilinogen 0.2 (0.2-1.0) mg/dL Ur Leukocyte Esterase Small H (NEGATIVE) Meds: Medications Generic Name Dose Route Start Last Admin Trade Name Freq PRN Reason Stop Dose Admin Sodium Chloride 500 mls @ 250 mls/hr 01/12/21 13:45 01/12/21 13:51 Normal Saline IV 250 mls/hr .BOLUS MARTINEZ Administration Sodium Chloride 10 ml 01/12/21 13:34 01/12/21 13:51 Sodium Chloride 0.9% 10 Ml Syringe FLUSH 10 ml ASDIRECTED PRN Administration Keep Vein Open Discontinued Medications Generic Name Dose Route Start Last Admin Trade Name Freq PRN Reason Stop Dose Admin Famotidine 20 mg 01/12/21 13:35 01/12/21 13:51 Famotidine 20 Mg/2 Ml Sdv IVPUSH 01/12/21 13:36 20 mg ONETIME ONE Administration Hydromorphone HCl 0.5 mg 01/12/21 13:35 01/12/21 13:51 Hydromorphone 0.5 Mg/0.5 Ml Syringe IVPUSH 01/12/21 13:36 0.5 mg ONETIME ONE Administration Iopamidol 100 ml 01/12/21 14:19 01/12/21 14:49 Iopamidol 612 Mg/Ml 100 Ml Bottle IVPUSH 01/12/21 14:20 75 ml ONETIME ONE Administration Ondansetron HCl 4 mg 01/12/21 13:35 01/12/21 13:51 Ondansetron 4 Mg/2 Ml Sdv IV 01/12/21 13:36 4 mg ONETIME ONE Administration - Re-Assessments/Exams Free Text/Narrative Re-Assessment/Exam: 01/12/21 I personally performed or re-performed the physical examination and medical decision making. I have verified all student documentation or findings, including history, physical exam and/or medical decision making. 01/12/21 16:40 Pt made aware of incidental finding of gall stones. Admitted for pain control related right sided kidney stone. Departure - Departure Time of Disposition: 16:38 (admitted to Dr. Pena) Sepsis Event Note (ED) - Focused Exam Vital Signs: Vital Signs Temp Pulse Resp BP Pulse Ox 01/12/21 13:11 97.2 F 75 18 162/60 H 97 - My Orders Last 24 Hours: My Active Orders 01/12/21 13:34 Sodium Chloride 0.9% [Saline Flush] 10 ml FLUSH ASDIRECTED PRN 01/12/21 13:35 Peripheral IV Care [RC] . DIRECTED Peripheral IV Insertion Adult [OM.PC] Stat 01/12/21 13:45 Sodium Chloride 0.9% [Normal Saline] 500 ml IV .BOLUS 01/12/21 16:15 CULTURE URINE [RM] Stat UA W/MICROSCOPIC [URIN] Stat - Assessment/Plan Last 24 Hours: My Active Orders 01/12/21 13:34 Sodium Chloride 0.9% [Saline Flush] 10 ml FLUSH ASDIRECTED PRN 01/12/21 13:35 Peripheral IV Care [RC] . DIRECTED Peripheral IV Insertion Adult [OM.PC] Stat 01/12/21 13:45 Sodium Chloride 0.9% [Normal Saline] 500 ml IV .BOLUS 01/12/21 16:15 CULTURE URINE [RM] Stat UA W/MICROSCOPIC [URIN] Stat
--- NOTE | 2021-01-12 15:11 | CT ---
EXAMINATION: Abdomen Pelvis w Cont SEX: Female AGE: 89 years CLINICAL HISTORY: 89-year-old 172 pounds female complaining of mid epigastric abdominal pain. Previous CT exam 11 April 2017 for this hypertensive female with known endometrial carcinoma revealed "sigmoid diverticulosis and insufficiency fractures osteoporotic spine". Scan technique: Volume acquisition of data from the abdomen and pelvis obtained during/after the intravenous infusion 75 cc nonionic Isovue contrast while patient was lying supine on the Siemens multislice scanner [place], [place]. All data archived in the PACS system for storage, reformatting axial/sagittal/coronal planes and study. Interpretation: Abnormal. 1. Tiny calcified dependent intraluminal calcifications gallbladder RUQ i.e. gallstones. Gallbladder distended. 2. No abnormal dilatation of the intra or extrahepatic biliary ducts. Liver, stomach, spleen, pancreas and adrenal glands unremarkable. Symmetric normal reniform size axis and configuration. No nephrolithiasis or obstructive uropathy. 3. Aortic valve and left ventricular wall calcifications. Atheromatous calcifications (cast) normal caliber aortoiliac vessels. No sign of abdominal aortic aneurysm or dissection. Lung bases clear. No pericardial or pleural effusions. 4. Hemangioma L2 vertebral body and old compression fractures osteoporotic L1 and L4 vertebra (unchanged since [address] exam). No new fracture or spondylolisthesis. 5. No inflammatory "dirty" peritoneal fat. Numerous diverticula (pancolonic). No abdominal or pelvic mass lesion. No sign of mechanical bowel obstruction, ascites or free intraperitoneal air. CONCLUSION: Cholelithiasis. Pancolonic diverticulosis. Osteoporosis and several old fractures lumbar spine. No sign of abdominal malignancy, bowel obstruction, or acute peritonitis. Cardiac disease.
[2021-01-12] MEDS ORDERED: Bisacodyl 5 MG Tab PO PRN (16:33)
[2021-01-12] MEDS ORDERED: Ondansetron 4 MG/2 ML SDV IVPUSH PRN (16:33)
[2021-01-12] MEDS ORDERED: Acetaminophen 325 MG Tab PO PRN (16:33)
[2021-01-12] MEDS ORDERED: Acetaminophen/oxyCODONE 325-5 MG Tab PO PRN (16:33)
[2021-01-12] MEDS ORDERED: Docusate Sodium 100 MG Cap PO PRN (16:33)
[2021-01-12] MEDS ORDERED: Sodium Chloride 0.9% 1,000 ML IV SCH (16:45)
--- NOTE | 2021-01-12 16:53 | PCM.HP ---
H&P History of Present Illness - General Date of Service: 01/12/21 Admit Problem/Dx: Admission Diagnosis/Problem Admission Diagnosis/Problem Kidney stone Source of Information: Patient, Family, Other (ER provider) History Limitations: Reports: No Limitations - History of Present Illness Initial Comments - Free Text/Narative: 89 y/o w who livies at assisted living, presented to ER with vomiting and diarrhea started yesterday associated with moderate to severe lower abdominal pain/ No fever, dysuria or blood in urine. In ER , UA showed microscopic hematuria . Abdominal CT scan showed diverticulosis and a small mid ureter stone. Pt received on dose of Hydromorphone 1 mg but her saturation dropped but improved spontaneously. Her pain went down from 8/10 to 2/10. She is pain free at present. pt was admitted for observation. PMH: ? 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, Onset of Symptoms: Reports: Sudden Duration of Symptoms: Reports: Day(s): (yestarday) Quality: Reports: Dull Improves with: Reports: None Worsens with: Reports: None Associated Symptoms: Reports: Nausea/Vomiting, Other (diarrhea) Upper Abdominal Pain Score (Numeric/FACES): 9 - Related Data Allergies/Adverse Reactions: Allergies Allergy/AdvReac Type Severity Reaction Status Date / Time aspirin Allergy Bleeding Verified 01/12/21 13:13 NSAIDS (Non-Steroidal Allergy Bleeding Verified 01/12/21 13:13 Anti-Inflamma Home Medications: Home Meds Calcium Carbonate/Vitamin D3 [Calcium 600 + D Tablet] 1 each PO DAILY 06/18/15 [History] Acetaminophen [Tylenol Extra Strength] 1,000 mg PO TID PRN 06/23/15 [History] Latanoprost [Xalatan 0.005% Ophth Soln] 1 drop EYEBOTH BEDTIME 06/23/15 [History] Psyllium Husk/Aspartame [Metamucil Sugar Free] 1 packet PO ASDIRECTED PRN 06/23/15 [History] Escitalopram Oxalate [Lexapro] 10 mg PO DAILY 05/03/16 [History] Levothyroxine Sodium [Synthroid] 75 mcg PO DAILY 05/03/16 [History] Eyepromise Restore 1 tab PO BID 02/22/17 [History] Alendronate Sodium [Fosamax] 70 mg PO .WEEKLY 07/24/20 [History] Cholecalciferol (Vitamin D3) [Vitamin D3] 3,000 unit PO DAILY 07/24/20 [History] Fosinopril Sodium 20 mg PO DAILY 07/24/20 [History] hydroCHLOROthiazide [Hydrochlorothiazide] 50 mg PO DAILY 07/24/20 [History] Ketorolac [Acular 0.5% Ophth Soln] 1 drop EYELF ASDIRECTED 08/01/20 [History] Ofloxacin [Ocuflox 0.3% Ophth Soln] 1 drop EYELF ASDIRECTED 08/01/20 [History] Prednisolone Acetate/Pf [Prednisolone Acet 1% Eye Drop] 1 drop EYELF ASDIRECTED 08/01/20 [History] A,C,E/Zinc/Sod Tiffani/Manjinder/Lutein [Eye Multivitamin-Lutein Tablet] 1 tab PO DAILY 09/13/20 [History] Past Medical History HEENT History: Reports: Cataract, Glaucoma, Macular Degeneration Other HEENT History: Sees spots in her vision at times Cardiovascular History: Reports: Heart Murmur, High Cholesterol, Hypertension Respiratory History: Reports: Bronchitis, Recurrent Gastrointestinal History: Reports: Diverticulosis, Hemorrhoids, Other (See Below) Other Gastrointestinal History: HX OF DIVERTICULITIS OF COLON Genitourinary History: Reports: Urinary Incontinence Other Genitourinary History: Stress incontinence [employer] History: Reports: , Spontaneous Musculoskeletal History: Reports: Fracture, Osteoarthritis, Osteoporosis, Other (See Below) Other Musculoskeletal History: polymyalgia rheumatica, Proximal humeral fracture, Distal radial Fracture, closed left hip fracture Neurological History: Reports: None Psychiatric History: Reports: Depression Endocrine/Metabolic History: Reports: Hyperparathyroidism, Hypothyroidism, Osteopenia, Osteoporosis Other Endocrine/Metabolic History: Hypothyroidism Hematologic History: Reports: Anemia Immunologic History: Reports: None Oncologic (Cancer) History: Reports: Squamous Cell Carcinoma, Other (See Below) Other Oncologic History: Endometrial cancer Dermatologic History: Reports: None - Infectious Disease History Infectious Disease History: Reports: Chicken Pox, Measles, Mumps - Past Surgical History HEENT Surgical History: Reports: Cataract Surgery Cardiovascular Surgical History: Reports: None Respiratory Surgical History: Reports: None GI Surgical History: Reports: Colonoscopy, Polypectomy Other GI Surgeries/Procedures: polypectomy Female Surgical History: Reports: D&C, Hysterectomy, Salpingo-Oophorectomy, Other (See Below) Other Female Surgeries/Procedures: Endometrial biopsy, lymphadenectomy (pelvic-all negative) Endocrine Surgical History: Reports: Parathyroidectomy, Other (See Below) Other Endocrine Surgeries/Procedures: Parathyroidectomy. LYMPHADENECTOMY PELVIC Neurological Surgical History: Reports: None Musculoskeletal Surgical History: Reports: Knee Replacement, Other (See Below) Other Musculoskeletal Surgeries/Procedures:: HIP SURGERY Oncologic Surgical History: Reports: None Dermatological Surgical History: Reports: Skin Biopsy Social & Family History - Family History Family Medical History: No Pertinent Family History - Tobacco Use Tobacco Use Status *Q: Never Tobacco User - Caffeine Use Caffeine Use: Reports: Coffee - Recreational Drug Use Recreational Drug Use: No - Living Situation & Occupation Living situation: Reports: , Alone Occupation: Retired H&P Review of Systems - Review of Systems: Review Of Systems: See Below General: Denies: Fever, Chills Pulmonary: Denies: Shortness of Breath Cardiovascular: Denies: Chest Pain Gastrointestinal: Reports: Abdominal Pain, Diarrhea, Nausea, Vomiting Genitourinary: Denies: Dysuria, Frequency, Burning, Hematuria, Flank Pain Skin: Denies: Jaundice Psychiatric: Denies: Confusion Neurological: Denies: Confusion Hematologic/Lymphatic: Reports: Anemia Immunologic: Denies: Anaphylaxis Exam - Exam Exam: See Below - Vital Signs Vital Signs: Last Vital Signs Temp 97.2 F 01/12/21 13:11 Pulse 75 01/12/21 13:11 Resp 18 01/12/21 13:11 BP 162/60 H 01/12/21 13:11 Pulse Ox 97 01/12/21 13:11 Weight: 169 lb 6.4 oz - Exam Quality Assessment: No: Supplemental Oxygen General: Alert, Oriented HEENT: Conjunctiva Clear Neck: Supple Cardiovascular: Regular Rate, Regular Rhythm, Systolic Murmur GI/Abdominal Exam: Normal Bowel Sounds, Soft, Non-Tender. No: Rebound (Female) Exam: Deferred Rectal (Female) Exam: Deferred Extremities: Normal Inspection, Normal Range of Motion Neurological: Cranial Nerves Intact Neuro Extensive - Mental Status: Alert, Oriented x3 Neuro Extensive - Motor, Sensory, Reflexes: Normal Gait Psychiatric: Alert, Normal Affect - Patient Data Lab Results Last 24 hrs: Laboratory Results - last 24 hr 01/12/21 01/12/21 01/12/21 Range/Units 13:25 13:25 13:25 WBC 10.0 (5.0-10.0) 10^3/uL RBC 4.12 L (4.2-5.4) 10^6/uL Hgb 12.6 D (12.0-16.0) g/dL Hct 38.1 (37.0-47.0) % MCV 92.5 D (80-100) fL MCH 30.6 (27.0-34.0) pg MCHC 33.1 (33.0-35.0) g/dL Plt Count 175 D (150-450) 10^3/uL Neut % (Auto) 86.6 H (42.2-75.2) % Lymph % (Auto) 6.5 L (20.5-50.1) % Perry % (Auto) 6.1 (2-8) % Eos % (Auto) 0.4 L (1.0-3.0) % Baso % (Auto) 0.4 (0.0-1.0) % Sodium 141 (136-145) mmol/L Potassium 3.5 (3.5-5.1) mmol/L Chloride 100 (98-107) mmol/L Carbon Dioxide 31 (21-32) mmol/L Anion Gap 13.5 H (7-13) mEq/L BUN 22 H (7-18) mg/dL Creatinine 0.87 (0.55-1.02) mg/dL Est Cr Clr Drug Dosing 35.35 mL/min Estimated GFR (MDRD) > 60 BUN/Creatinine Ratio 25.3 (No establ ref range) Glucose 138 H (74-99) mg/dL Lactic Acid 1.3 (0.4-2.0) mmol/L Calcium 9.3 (8.5-10.1) mg/dL Total Bilirubin 1.3 H (0.2-1.0) mg/dL AST 114 H (15-37) U/L ALT 72 H (14-59) U/L Alkaline Phosphatase 73 (46-116) U/L Total Protein 6.9 (6.4-8.2) g/dL Albumin 3.6 (3.4-5.0) g/dL Globulin 3.3 Albumin/Globulin Ratio 1.1 Amylase 63 (25-115) U/L Lipase 221 (73-393) U/L Urine Color (YELLOW) Urine Appearance (CLEAR) Urine pH (5.0-9.0) Ur Specific [place] (1.005-1.030) Urine Protein (NEGATIVE) Urine Glucose (UA) (NEGATIVE) Urine Ketones (NEGATIVE) Urine Occult Blood (NEGATIVE) Urine Nitrite (NEGATIVE) Urine Bilirubin (NEGATIVE) Urine Urobilinogen (0.2-1.0) mg/dL Ur Leukocyte Esterase (NEGATIVE) Urine RBC /HPF Urine WBC (0-5/HPF) /HPF Ur Epithelial Cells (NOT SEEN) /HPF Amorphous Sediment (NOT SEEN) /HPF Urine Bacteria (0-FEW/HPF) /HPF Urine Mucus (NOT SEEN) /LPF 01/12/21 Range/Units 16:15 WBC (5.0-10.0) 10^3/uL RBC (4.2-5.4) 10^6/uL Hgb (12.0-16.0) g/dL Hct (37.0-47.0) % MCV (80-100) fL MCH (27.0-34.0) pg MCHC (33.0-35.0) g/dL Plt Count (150-450) 10^3/uL Neut % (Auto) (42.2-75.2) % Lymph % (Auto) (20.5-50.1) % Perry % (Auto) (2-8) % Eos % (Auto) (1.0-3.0) % Baso % (Auto) (0.0-1.0) % Sodium (136-145) mmol/L Potassium (3.5-5.1) mmol/L Chloride (98-107) mmol/L Carbon Dioxide (21-32) mmol/L Anion Gap (7-13) mEq/L BUN (7-18) mg/dL Creatinine (0.55-1.02) mg/dL Est Cr Clr Drug Dosing mL/min Estimated GFR (MDRD) BUN/Creatinine Ratio (No establ ref range) Glucose (74-99) mg/dL Lactic Acid (0.4-2.0) mmol/L Calcium (8.5-10.1) mg/dL Total Bilirubin (0.2-1.0) mg/dL AST (15-37) U/L ALT (14-59) U/L Alkaline Phosphatase (46-116) U/L Total Protein (6.4-8.2) g/dL Albumin (3.4-5.0) g/dL Globulin Albumin/Globulin Ratio Amylase (25-115) U/L Lipase (73-393) U/L Urine Color Yellow (YELLOW) Urine Appearance Slightly cloudy (CLEAR) Urine pH 6.5 (5.0-9.0) Ur Specific [place] 1.025 (1.005-1.030) Urine Protein Negative (NEGATIVE) Urine Glucose (UA) Negative (NEGATIVE) Urine Ketones Negative (NEGATIVE) Urine Occult Blood Trace-intact H (NEGATIVE) Urine Nitrite Negative (NEGATIVE) Urine Bilirubin Negative (NEGATIVE) Urine Urobilinogen 0.2 (0.2-1.0) mg/dL Ur Leukocyte Esterase Small H (NEGATIVE) Urine RBC 5-10 H /HPF Urine WBC 10-20 H (0-5/HPF) /HPF Ur Epithelial Cells Few (NOT SEEN) /HPF Amorphous Sediment Few (NOT SEEN) /HPF Urine Bacteria Few (0-FEW/HPF) /HPF Urine Mucus Few H (NOT SEEN) /LPF Result Diagrams: 01/12/21 13:25 01/12/21 13:25 *Q Meaningful Use (ADM) - VTE *Q VTE Mechanical Contraindications *Q: At Risk for Falls Problem List Initiated/Reviewed/Updated: Yes Orders Last 24hrs: Active Orders 24 hr Category Date Time Status Admission Diagnosis [ADT] Routine ADT 01/12/21 16:22 Ordered Admission Status [Patient Status] [ADT] Routine ADT 01/12/21 16:22 Active Antiembolic Devices [RC] PER UNIT ROUTINE Care 01/12/21 16:37 Ordered Intake and Output [RC] QSHIFT Care 01/12/21 16:34 Ordered Oxygen Therapy [RC] PRN Care 01/12/21 16:33 Ordered Peripheral IV Care [RC] . DIRECTED Care 01/12/21 13:35 Active Up With Assistance [RC] ASDIRECTED Care 01/12/21 16:33 Ordered VTE/DVT Education [RC] PER UNIT ROUTINE Care 01/12/21 16:33 Ordered Vital Signs [RC] Q4H Care 01/12/21 16:33 Ordered Regular Diet [DIET] Diet 01/12/21 Dinner Ordered BASIC METABOLIC PANEL,BMP [CHEM] AM Lab 01/13/21 05:11 Ordered BASIC METABOLIC PANEL,BMP [CHEM] AM Lab 01/14/21 05:11 Ordered BASIC METABOLIC PANEL,BMP [CHEM] AM Lab 01/15/21 05:11 Ordered BASIC METABOLIC PANEL,BMP [CHEM] AM Lab 01/16/21 05:11 Ordered BASIC METABOLIC PANEL,BMP [CHEM] AM Lab 01/17/21 05:11 Ordered BASIC METABOLIC PANEL,BMP [CHEM] AM Lab 01/18/21 05:11 Ordered BASIC METABOLIC PANEL,BMP [CHEM] AM Lab 01/19/21 05:11 Ordered CULTURE URINE [RM] Stat Lab 01/12/21 16:15 Received Acetaminophen [TylenoL] Med 01/12/21 16:33 Ordered 650 mg PO Q4H PRN Acetaminophen/oxyCODONE [Percocet 325-5 MG] Med 01/12/21 16:33 Ordered 1 tab PO Q4H PRN Docusate Sodium [Colace] Med 01/12/21 16:33 Ordered 100 mg PO BID PRN Ondansetron [Zofran] Med 01/12/21 16:33 Ordered 4 mg IVPUSH Q6H PRN Sodium Chloride 0.9% @ 50 MLS/HR(1000ml) Med 01/12/21 16:45 Ordered Sodium Chloride 0.9% [Normal Saline] 1,000 ml IV ASDIRECTED Sodium Chloride 0.9% [Normal Saline] 500 ml Med 01/12/21 13:45 Active IV .BOLUS Sodium Chloride 0.9% [Saline Flush] Med 01/12/21 13:34 Active 10 ml FLUSH ASDIRECTED PRN bisacodyL [Dulcolax] Med 01/12/21 16:33 Ordered 5 mg PO DAILY PRN Antiembolic Hose [OM.PC] Per Unit Routine Oth 01/12/21 16:35 Ordered Peripheral IV Insertion Adult [OM.PC] Stat Oth 01/12/21 13:35 Ordered Sequential Compression Device [OM.PC] Per Unit Routine Oth 01/12/21 16:35 Ordered VTE Mechanical Contraindications [AST] Per Unit Routine Oth 01/12/21 16:33 Ordered Resuscitation Status Routine Resus Stat 01/12/21 16:33 Ordered Medication Orders Acetaminophen (Acetaminophen 325 Mg Tab) 650 mg PO Q4H PRN PRN Reason: Pain (Mild 1-3)/fever Bisacodyl (Bisacodyl 5 Mg Tab) 5 mg PO DAILY PRN PRN Reason: Constipation Docusate Sodium (Docusate Sodium 100 Mg Cap) 100 mg PO BID PRN PRN Reason: Constipation Sodium Chloride (Normal Saline) 500 mls @ 250 mls/hr IV .BOLUS MARTINEZ Last Admin: 01/12/21 13:51 Dose: 250 mls/hr Documented by: JEREMY Sodium Chloride (Normal Saline) 1,000 mls @ 50 mls/hr IV ASDIRECTED MARTINEZ Ondansetron HCl (Ondansetron 4 Mg/2 Ml Sdv) 4 mg IVPUSH Q6H PRN PRN Reason: Nausea/Vomiting Oxycodone/Acetaminophen (Acetaminophen/Oxycodone 325-5 Mg Tab) 1 tab PO Q4H PRN PRN Reason: Pain (moderate 4-6) Sodium Chloride (Sodium Chloride 0.9% 10 Ml Syringe) 10 ml FLUSH ASDIRECTED PRN PRN Reason: Keep Vein Open Last Admin: 01/12/21 13:51 Dose: 10 ml Documented by: [email or web address] Assessment/Plan Comment:: Abdominal pain, N/V: Zofran urteral stone: small > IVF , oral pain medications 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
[2021-01-12] MEDS ORDERED: Acetaminophen 500 MG Tab PO PRN (17:01)
[2021-01-12] MEDS ORDERED: Psyllium Husk Powder Sugar Free 5.85 GM Packet PO PRN (17:01)
[2021-01-12] MEDS ORDERED: Non-Formulary Medication 1 Each (Prednisolone Acetate/Pf [Prednisolone Acet 1% Eye Drop] 5 EYELF SCH (17:15)
[2021-01-12] MEDS ORDERED: Non-Formulary Medication 1 Each (Alendronate Sodium [Fosamax] 70 MG Tablet) PO SCH (17:15)
[2021-01-12] MEDS ORDERED: KETOROLAC EYELF SCH (17:15)
[2021-01-12] MEDS ORDERED: Non-Formulary Medication 1 Each (Ofloxacin [Ocuflox 0.3% Ophth Soln] 5 ML Bottle) EYELF SCH (17:15)
[2021-01-12] MEDS: Latanoprost 0.005% Ophth Soln 2.5 ML Bottle EYEBOTH SCH (20:49)
[2021-01-12] MEDS ORDERED: [UNRECOGNIZED DRUG - OTHER] PO SCH (21:00)
[2021-01-13 06:23] LABS: ANION GAP 10.4 mEq/L (7-13)
[2021-01-13] MEDS ORDERED: FOSINOPRIL SODIUM 20 MG PO SCH (09:00)
--- NOTE | 2021-01-13 09:42 | PCM.PN ---
- General Info Date of Service: 01/13/21 Admission Dx/Problem (Free Text): Admission Diagnosis/Problem Admission Diagnosis/Problem Kidney stone No more pain. no n/V. tolerating diet. No dysuria. did no see a stone passed. Functional Status: Reports: Pain Controlled, Tolerating Diet - Review of Systems General: Denies: Fever Pulmonary: Denies: Shortness of Breath Cardiovascular: Denies: Chest Pain Gastrointestinal: Denies: Abdominal Pain Genitourinary: Denies: Dysuria Neurological: Denies: Confusion Psychiatric: Denies: Confusion - Patient Data Vitals - Most Recent: Last Vital Signs Temp 97.3 F 01/13/21 08:00 Pulse 68 01/13/21 08:00 Resp 18 01/13/21 08:00 BP 116/51 L 01/13/21 08:00 Pulse Ox 94 L 01/13/21 08:00 Weight - Most Recent: 169 lb 6.4 oz I&O - Last 24 Hours: Intake & Output 01/12/21 01/13/21 01/13/21 22:59 06:59 14:59 Intake Total 360 589 Output Total 200 350 300 Balance 160 239 -300 Lab Results Last 24 Hours: Laboratory Results - last 24 hr 01/12/21 01/12/21 01/12/21 Range/Units 13:25 13:25 13:25 WBC 10.0 (5.0-10.0) 10^3/uL RBC 4.12 L (4.2-5.4) 10^6/uL Hgb 12.6 D (12.0-16.0) g/dL Hct 38.1 (37.0-47.0) % MCV 92.5 D (80-100) fL MCH 30.6 (27.0-34.0) pg MCHC 33.1 (33.0-35.0) g/dL Plt Count 175 D (150-450) 10^3/uL Neut % (Auto) 86.6 H (42.2-75.2) % Lymph % (Auto) 6.5 L (20.5-50.1) % Izard % (Auto) 6.1 (2-8) % Eos % (Auto) 0.4 L (1.0-3.0) % Baso % (Auto) 0.4 (0.0-1.0) % Sodium 141 (136-145) mmol/L Potassium 3.5 (3.5-5.1) mmol/L Chloride 100 (98-107) mmol/L Carbon Dioxide 31 (21-32) mmol/L Anion Gap 13.5 H (7-13) mEq/L BUN 22 H (7-18) mg/dL Creatinine 0.87 (0.55-1.02) mg/dL Est Cr Clr Drug Dosing 35.35 mL/min Estimated GFR (MDRD) > 60 BUN/Creatinine Ratio 25.3 (No establ ref range) Glucose 138 H (74-99) mg/dL Lactic Acid 1.3 (0.4-2.0) mmol/L Calcium 9.3 (8.5-10.1) mg/dL Total Bilirubin 1.3 H (0.2-1.0) mg/dL AST 114 H (15-37) U/L ALT 72 H (14-59) U/L Alkaline Phosphatase 73 (46-116) U/L Total Protein 6.9 (6.4-8.2) g/dL Albumin 3.6 (3.4-5.0) g/dL Globulin 3.3 Albumin/Globulin Ratio 1.1 Amylase 63 (25-115) U/L Lipase 221 (73-393) U/L Urine Color (YELLOW) Urine Appearance (CLEAR) Urine pH (5.0-9.0) Ur Specific [place] (1.005-1.030) Urine Protein (NEGATIVE) Urine Glucose (UA) (NEGATIVE) Urine Ketones (NEGATIVE) Urine Occult Blood (NEGATIVE) Urine Nitrite (NEGATIVE) Urine Bilirubin (NEGATIVE) Urine Urobilinogen (0.2-1.0) mg/dL Ur Leukocyte Esterase (NEGATIVE) Urine RBC /HPF Urine WBC (0-5/HPF) /HPF Ur Epithelial Cells (NOT SEEN) /HPF Amorphous Sediment (NOT SEEN) /HPF Urine Bacteria (0-FEW/HPF) /HPF Urine Mucus (NOT SEEN) /LPF SARS-CoV-2 RNA (VICTORIANO) (NEGATIVE) 01/12/21 01/12/21 01/13/21 Range/Units 16:15 17:22 05:45 WBC (5.0-10.0) 10^3/uL RBC (4.2-5.4) 10^6/uL Hgb (12.0-16.0) g/dL Hct (37.0-47.0) % MCV (80-100) fL MCH (27.0-34.0) pg MCHC (33.0-35.0) g/dL Plt Count (150-450) 10^3/uL Neut % (Auto) (42.2-75.2) % Lymph % (Auto) (20.5-50.1) % Izard % (Auto) (2-8) % Eos % (Auto) (1.0-3.0) % Baso % (Auto) (0.0-1.0) % Sodium 144 (136-145) mmol/L Potassium 3.4 L (3.5-5.1) mmol/L Chloride 103 (98-107) mmol/L Carbon Dioxide 34 H (21-32) mmol/L Anion Gap 10.4 (7-13) mEq/L BUN 17 (7-18) mg/dL Creatinine 1.02 (0.55-1.02) mg/dL Est Cr Clr Drug Dosing 30.15 mL/min Estimated GFR (MDRD) 51 BUN/Creatinine Ratio (No establ ref range) Glucose 89 (74-99) mg/dL Lactic Acid (0.4-2.0) mmol/L Calcium 8.2 L (8.5-10.1) mg/dL Total Bilirubin (0.2-1.0) mg/dL AST (15-37) U/L ALT (14-59) U/L Alkaline Phosphatase (46-116) U/L Total Protein (6.4-8.2) g/dL Albumin (3.4-5.0) g/dL Globulin Albumin/Globulin Ratio Amylase (25-115) U/L Lipase (73-393) U/L Urine Color Yellow (YELLOW) Urine Appearance Slightly cloudy (CLEAR) Urine pH 6.5 (5.0-9.0) Ur Specific [place] 1.025 (1.005-1.030) Urine Protein Negative (NEGATIVE) Urine Glucose (UA) Negative (NEGATIVE) Urine Ketones Negative (NEGATIVE) Urine Occult Blood Trace-intact H (NEGATIVE) Urine Nitrite Negative (NEGATIVE) Urine Bilirubin Negative (NEGATIVE) Urine Urobilinogen 0.2 (0.2-1.0) mg/dL Ur Leukocyte Esterase Small H (NEGATIVE) Urine RBC 5-10 H /HPF Urine WBC 10-20 H (0-5/HPF) /HPF Ur Epithelial Cells Few (NOT SEEN) /HPF Amorphous Sediment Few (NOT SEEN) /HPF Urine Bacteria Few (0-FEW/HPF) /HPF Urine Mucus Few H (NOT SEEN) /LPF SARS-CoV-2 RNA (VICTORIANO) Negative (NEGATIVE) Med Orders - Current: Current Medications Acetaminophen (Acetaminophen 325 Mg Tab) 650 mg PO Q4H PRN PRN Reason: Pain (Mild 1-3)/fever Acetaminophen (Acetaminophen 500 Mg Tab) 1,000 mg PO TID PRN PRN Reason: Pain (mild 1-3) Bisacodyl (Bisacodyl 5 Mg Tab) 5 mg PO DAILY PRN PRN Reason: Constipation Calcium Carbonate (Calcium Carbonate/Vitamin D3 1250 Mg-200 Unit Tab) 1 tab PO DAILY [facility] Cholecalciferol (Cholecalciferol (Vitamin D3) 25 Mcg Tab) 75 mcg PO DAILY [facility] Docusate Sodium (Docusate Sodium 100 Mg Cap) 100 mg PO BID PRN PRN Reason: Constipation Escitalopram Oxalate (Escitalopram 10 Mg Tab) 10 mg PO DAILY [facility] Sodium Chloride (Normal Saline) 500 mls @ 250 mls/hr IV .BOLUS [facility] Last Admin: 01/12/21 13:51 Dose: 250 mls/hr Documented by: Sodium Chloride (Normal Saline) 1,000 mls @ 50 mls/hr IV ASDIRECTED [facility] Last Admin: 01/12/21 18:06 Dose: 50 mls/hr Documented by: Latanoprost (Latanoprost 0.005% Ophth Soln 2.5 Ml Bottle) 0 ml EYEBOTH BEDTIME [facility] Last Admin: 01/12/21 20:49 Dose: 1 drop Documented by: Levothyroxine Sodium (Levothyroxine 75 Mcg Tab) 75 mcg PO DAILY [facility] Multivitamins/Minerals (Lutein/Minerals/Vit A,C & E Tab) 1 each PO DAILY [facility] Non-Formulary Medication (Alendronate Sodium [Fosamax]) 70 mg PO .WEEKLY [facility] Non-Formulary Medication (Eyepromise Restore) 1 tab PO BID [facility] Non-Formulary Medication (Fosinopril Sodium [Fosinopril Sodium]) 20 mg PO DAILY [facility] Non-Formulary Medication (Ketorolac) 1 drop EYELF ASDIRECTED MARTINEZ Ondansetron HCl (Ondansetron 4 Mg/2 Ml Sdv) 4 mg IVPUSH Q6H PRN PRN Reason: Nausea/Vomiting Oxycodone/Acetaminophen (Acetaminophen/Oxycodone 325-5 Mg Tab) 1 tab PO Q4H PRN PRN Reason: Pain (moderate 4-6) Last Admin: 01/12/21 20:50 Dose: 1 tab Documented by: Psyllium Husk (Psyllium Husk Powder Sugar Free 5.85 Gm Packet) 1 pkt PO A SDIRECTED PRN PRN Reason: Constipation Sodium Chloride (Sodium Chloride 0.9% 10 Ml Syringe) 10 ml FLUSH ASDIRECTED PRN PRN Reason: Keep Vein Open Last Admin: 01/12/21 13:51 Dose: 10 ml Documented by: Discontinued Medications Famotidine (Famotidine 20 Mg/2 Ml Sdv) 20 mg IVPUSH ONETIME ONE Stop: 01/12/21 13:36 Last Admin: 01/12/21 13:51 Dose: 20 mg Documented by: Hydromorphone HCl (Hydromorphone 0.5 Mg/0.5 Ml Syringe) 0.5 mg IVPUSH ONETIME ONE Stop: 01/12/21 13:36 Last Admin: 01/12/21 13:51 Dose: 0.5 mg Documented by: Iopamidol (Iopamidol 612 Mg/Ml 100 Ml Bottle) 100 ml IVPUSH ONETIME ONE Stop: 01/12/21 14:20 Last Admin: 01/12/21 14:49 Dose: 75 ml Documented by: Non-Formulary Medication (Ofloxacin [Ocuflox 0.3% Ophth Soln]) 1 drop EYELF ASDIRECTED [facility] Non-Formulary Medication (Prednisolone Acetate/Pf [Prednisolone Acet 1% Eye Drop]) 1 drop EYELF ASDIRECTED [facility] Ondansetron HCl (Ondansetron 4 Mg/2 Ml Sdv) 4 mg IV ONETIME ONE Stop: 01/12/21 13:36 Last Admin: 01/12/21 13:51 Dose: 4 mg Documented by: - Exam Quality Assessment: No: Supplemental Oxygen General: No: Oriented Lungs: Clear to Auscultation Cardiovascular: Regular Rate, Regular Rhythm GI/Abdominal Exam: Soft, Other (mild rt LOWER QUADRENT TENDERNESS). No: Distended Back Exam: Normal Inspection Extremities: Normal Inspection Skin: Intact Neurological: No New Focal Deficit Psy/Mental Status: Normal Affect - Patient Data Lab Results Last 24 hrs: Laboratory Results - last 24 hr 01/12/21 01/12/21 01/12/21 Range/Units 13:25 13:25 13:25 WBC 10.0 (5.0-10.0) 10^3/uL RBC 4.12 L (4.2-5.4) 10^6/uL Hgb 12.6 D (12.0-16.0) g/dL Hct 38.1 (37.0-47.0) % MCV 92.5 D (80-100) fL MCH 30.6 (27.0-34.0) pg MCHC 33.1 (33.0-35.0) g/dL Plt Count 175 D (150-450) 10^3/uL Neut % (Auto) 86.6 H (42.2-75.2) % Lymph % (Auto) 6.5 L (20.5-50.1) % [place] % (Auto) 6.1 (2-8) % Eos % (Auto) 0.4 L (1.0-3.0) % Baso % (Auto) 0.4 (0.0-1.0) % Sodium 141 (136-145) mmol/L Potassium 3.5 (3.5-5.1) mmol/L Chloride 100 (98-107) mmol/L Carbon Dioxide 31 (21-32) mmol/L Anion Gap 13.5 H (7-13) mEq/L BUN 22 H (7-18) mg/dL Creatinine 0.87 (0.55-1.02) mg/dL Est Cr Clr Drug Dosing 35.35 mL/min Estimated GFR (MDRD) > 60 BUN/Creatinine Ratio 25.3 (No establ ref range) Glucose 138 H (74-99) mg/dL Lactic Acid 1.3 (0.4-2.0) mmol/L Calcium 9.3 (8.5-10.1) mg/dL Total Bilirubin 1.3 H (0.2-1.0) mg/dL AST 114 H (15-37) U/L ALT 72 H (14-59) U/L Alkaline Phosphatase 73 (46-116) U/L Total Protein 6.9 (6.4-8.2) g/dL Albumin 3.6 (3.4-5.0) g/dL Globulin 3.3 Albumin/Globulin Ratio 1.1 Amylase 63 (25-115) U/L Lipase 221 (73-393) U/L Urine Color (YELLOW) Urine Appearance (CLEAR) Urine pH (5.0-9.0) Ur Specific [place] (1.005-1.030) Urine Protein (NEGATIVE) Urine Glucose (UA) (NEGATIVE) Urine Ketones (NEGATIVE) Urine Occult Blood (NEGATIVE) Urine Nitrite (NEGATIVE) Urine Bilirubin (NEGATIVE) Urine Urobilinogen (0.2-1.0) mg/dL Ur Leukocyte Esterase (NEGATIVE) Urine RBC /HPF Urine WBC (0-5/HPF) /HPF Ur Epithelial Cells (NOT SEEN) /HPF Amorphous Sediment (NOT SEEN) /HPF Urine Bacteria (0-FEW/HPF) /HPF Urine Mucus (NOT SEEN) /LPF SARS-CoV-2 RNA (VICTORIANO) (NEGATIVE) 01/12/21 01/12/21 01/13/21 Range/Units 16:15 17:22 05:45 WBC (5.0-10.0) 10^3/uL RBC (4.2-5.4) 10^6/uL Hgb (12.0-16.0) g/dL Hct (37.0-47.0) % MCV (80-100) fL MCH (27.0-34.0) pg MCHC (33.0-35.0) g/dL Plt Count (150-450) 10^3/uL Neut % (Auto) (42.2-75.2) % Lymph % (Auto) (20.5-50.1) % [place] % (Auto) (2-8) % Eos % (Auto) (1.0-3.0) % Baso % (Auto) (0.0-1.0) % Sodium 144 (136-145) mmol/L Potassium 3.4 L (3.5-5.1) mmol/L Chloride 103 (98-107) mmol/L Carbon Dioxide 34 H (21-32) mmol/L Anion Gap 10.4 (7-13) mEq/L BUN 17 (7-18) mg/dL Creatinine 1.02 (0.55-1.02) mg/dL Est Cr Clr Drug Dosing 30.15 mL/min Estimated GFR (MDRD) 51 BUN/Creatinine Ratio (No establ ref range) Glucose 89 (74-99) mg/dL Lactic Acid (0.4-2.0) mmol/L Calcium 8.2 L (8.5-10.1) mg/dL Total Bilirubin (0.2-1.0) mg/dL AST (15-37) U/L ALT (14-59) U/L Alkaline Phosphatase (46-116) U/L Total Protein (6.4-8.2) g/dL Albumin (3.4-5.0) g/dL Globulin Albumin/Globulin Ratio Amylase (25-115) U/L Lipase (73-393) U/L Urine Color Yellow (YELLOW) Urine Appearance Slightly cloudy (CLEAR) Urine pH 6.5 (5.0-9.0) Ur Specific [place] 1.025 (1.005-1.030) Urine Protein Negative (NEGATIVE) Urine Glucose (UA) Negative (NEGATIVE) Urine Ketones Negative (NEGATIVE) Urine Occult Blood Trace-intact H (NEGATIVE) Urine Nitrite Negative (NEGATIVE) Urine Bilirubin Negative (NEGATIVE) Urine Urobilinogen 0.2 (0.2-1.0) mg/dL Ur Leukocyte Esterase Small H (NEGATIVE) Urine RBC 5-10 H /HPF Urine WBC 10-20 H (0-5/HPF) /HPF Ur Epithelial Cells Few (NOT SEEN) /HPF Amorphous Sediment Few (NOT SEEN) /HPF Urine Bacteria Few (0-FEW/HPF) /HPF Urine Mucus Few H (NOT SEEN) /LPF SARS-CoV-2 RNA (VICTORIANO) Negative (NEGATIVE) Result Diagrams: 01/12/21 13:25 01/13/21 05:45 Sepsis Event Note - Evaluation Sepsis Screening Result: No Definite Risk - Focused Exam Vital Signs: Vital Signs Temp Pulse Resp BP Pulse Ox 01/13/21 08:00 97.3 F 68 18 116/51 L 94 L 01/13/21 04:00 97.8 F 71 20 134/55 L 94 L 01/13/21 00:00 97.3 F 78 18 112/52 L 95 - Problem List Review Problem List Initiated/Reviewed/Updated: Yes - My Orders Last 24 Hours: My Active Orders 01/12/21 16:33 Oxygen Therapy [RC] PRN Up With Assistance [RC] ASDIRECTED VTE/DVT Education [RC] PER UNIT ROUTINE Vital Signs [RC] Q4H Acetaminophen [TylenoL] 650 mg PO Q4H PRN Acetaminophen/oxyCODONE [Percocet 325-5 MG] 1 tab PO Q4H PRN Docusate Sodium [Colace] 100 mg PO BID PRN Ondansetron [Zofran] 4 mg IVPUSH Q6H PRN bisacodyL [Dulcolax] 5 mg PO DAILY PRN VTE Mechanical Contraindications [AST] Per Unit Routine Resuscitation Status Routine 01/12/21 16:34 Intake and Output [RC] 06,14,22 01/12/21 16:35 Antiembolic Hose [OM.PC] Per Unit Routine Sequential Compression Device [OM.PC] Per Unit Routine 01/12/21 16:37 Antiembolic Devices [RC] PER UNIT ROUTINE 01/12/21 16:45 Sodium Chloride 0.9% [Normal Saline] 1,000 ml IV ASDIRECTED 01/12/21 17:01 Acetaminophen [Tylenol Extra Strength] 1,000 mg PO TID PRN Psyllium Husk/Aspartame [Metamucil Sugar Free] 1 pkt PO ASDIRECTED PRN 01/12/21 Dinner Regular Diet [DIET] Alendronate Sodium [Fosamax] 70 mg PO .WEEKLY Ketorolac 1 drop EYELF ASDIRECTED 01/12/21 21:00 Eyepromise Restore 1 tab PO BID Latanoprost [Xalatan 0.005% Ophth Soln] 0 ml EYEBOTH BEDTIME 01/13/21 09:00 Calcium Carbonate/Vitamin D3 [Calcium Carbonate/Vitamin D 1250 MG-200 Unit] 1 tab PO DAILY Cholecalciferol (Vitamin D3) [Vitamin D3] 75 mcg PO DAILY Escitalopram [Lexapro] 10 mg PO DAILY Fosinopril Sodium [Fosinopril Sodium] 20 mg PO DAILY Levothyroxine 75 mcg PO DAILY Lutein/Minerals/Vit A,C & E [I-Segun] 1 each PO DAILY 01/14/21 05:11 BASIC METABOLIC PANEL,BMP [CHEM] AM 01/15/21 05:11 BASIC METABOLIC PANEL,BMP [CHEM] AM 01/16/21 05:11 BASIC METABOLIC PANEL,BMP [CHEM] AM 01/17/21 05:11 BASIC METABOLIC PANEL,BMP [CHEM] AM 01/18/21 05:11 BASIC METABOLIC PANEL,BMP [CHEM] AM 01/19/21 05:11 BASIC METABOLIC PANEL,BMP [CHEM] AM - Plan Plan:: Abdominal pain, N/V: Zofran. RESOLVED. ONLY ONE DOSE OF oXYCODONE since admission. 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
[2021-01-13] MEDS: Escitalopram 10 MG Tab PO SCH (09:52)
[2021-01-13] MEDS: Calcium Carbonate/Vitamin D3 1250 MG-200 Unit Tab PO SCH (09:52)
[2021-01-13] MEDS: Levothyroxine 75 MCG Tab PO SCH (09:52)
[2021-01-13] MEDS: Cholecalciferol (Vitamin D3) 25 MCG Tab PO SCH (09:52)
[2021-01-13] MEDS: Lutein/Minerals/Vit A,C & E Tab PO SCH (09:52)
[2021-01-13] MEDS: Lisinopril 20 MG Tab PO SCH (09:57)
[2021-01-13] MEDS: Latanoprost 0.005% Ophth Soln 2.5 ML Bottle EYEBOTH SCH (21:13)
[2021-01-14 06:49] LABS: ANION GAP 9.6 mEq/L (7-13)
[2021-01-14] MEDS: Cholecalciferol (Vitamin D3) 25 MCG Tab PO SCH (08:34)
[2021-01-14] MEDS: Lisinopril 20 MG Tab PO SCH (08:34)
[2021-01-14] MEDS: Calcium Carbonate/Vitamin D3 1250 MG-200 Unit Tab PO SCH (08:34)
[2021-01-14] MEDS: Escitalopram 10 MG Tab PO SCH (08:34)
[2021-01-14] MEDS: Lutein/Minerals/Vit A,C & E Tab PO SCH (08:34)
[2021-01-14] MEDS: Levothyroxine 75 MCG Tab PO SCH (08:34)
[2021-01-14 08:35] VITALS: BP 144/60
[2021-01-14 08:36] VITALS: PULSE 77
--- NOTE | 2021-01-14 11:10 | PCM.DCSUM1 ---
Discharge Summary - Hospital Course Free Text/Narrative:: 89 y/o w who lives at an assisted living, presented to ER with vomiting and diarrhea started yesterday associated with moderate to severe lower abdominal pain/ No fever, dysuria or blood in urine. In ER , UA showed microscopic hematuria . Abdominal CT scan showed diverticulosis and a small mid ureter stone ( 4.5 mm mid RT ureter stone) . Pt received on dose of Hydromorphone 1 mg but her saturation dropped but improved spontaneously. Her pain went down from 8/10 to 2/10. She is pain free at present. pt was admitted for observation. Abdominal pain, N/V: Zofran Ureteral stone: small > IVF X 1 day then stopped. No stone seen while staining urine since admission. Pt required only two doses of Percocet since admission. and she is now pain free for > 24 hrs. Pt was advised to stain her urine at home and to F/U with her PCP for possible urology referral. History of diverticulosis: not active. 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 Return to ER if not better or any change. - Discharge Plan *PRESCRIPTION DRUG MONITORING PROGRAM REVIEWED*: No *COPY OF PRESCRIPTION DRUG MONITORING REPORT IN PATIENT MERNA: No Prescriptions/Med Rec: Acetaminophen/oxyCODONE [Percocet 325-5 MG] 1 tab PO Q8H PRN 3 Days #10 tablet PRN Reason: Pain (Moderate 4-6) Tobacco Cessation Medication: Prescription Given Home Medications: Home Meds Calcium Carbonate/Vitamin D3 [Calcium 600 + D Tablet] 1 each PO DAILY 06/18/15 [History] Latanoprost [Xalatan 0.005% Ophth Soln] 1 drop EYEBOTH BEDTIME 06/23/15 [History] Psyllium Husk/Aspartame [Metamucil Sugar Free] 1 packet PO DAILY PRN 06/23/15 [History] Escitalopram Oxalate [Lexapro] 10 mg PO BEDTIME 05/03/16 [History] Levothyroxine Sodium [Synthroid] 75 mcg PO ACBREAKFAST 05/03/16 [History] Eyepromise Restore 1 tab PO BID 02/22/17 [History] Alendronate Sodium [Fosamax] 70 mg PO .WEEKLY 07/24/20 [History] Cholecalciferol (Vitamin D3) [Vitamin D3] 3,000 unit PO DAILY 07/24/20 [History] Fosinopril Sodium 20 mg PO DAILY 07/24/20 [History] hydroCHLOROthiazide [Hydrochlorothiazide] 50 mg PO DAILY 07/24/20 [History] Ketorolac [Acular 0.5% Ophth Soln] 1 drop EYELF BID 08/01/20 [History] A,C,E/Zinc/Sod Tiffani/Manjinder/Lutein [Eye Multivitamin-Lutein Tablet] 1 tab PO DAILY 09/13/20 [History] Acetaminophen [Tylenol] 650 mg PO Q4H PRN tablet 01/14/21 [Rx] Acetaminophen/oxyCODONE [Percocet 325-5 MG] 1 tab PO Q8H PRN 3 Days #10 tablet 01/14/21 [Rx] Docusate Sodium [Colace] 100 mg PO BID PRN cap 01/14/21 [Rx] Oxygen Therapy Mode: Room Air Patient Handouts: Kidney Stones, [id number], Dietary Guidelines to Help Prevent Kidney Stones Referrals: Roxanne You MD [Physician] - - Discharge Summary/Plan Comment DC Time >30 min.: No - Patient Data Vitals - Most Recent: Last Vital Signs Temp 97.8 F 01/14/21 08:35 Pulse 77 01/14/21 08:35 Resp 18 01/14/21 08:35 BP 144/60 H 01/14/21 08:35 Pulse Ox 94 L 01/14/21 08:35 Weight - Most Recent: 169 lb 6.4 oz I&O - Last 24 hours: Intake & Output 01/13/21 01/14/21 01/14/21 22:59 06:59 14:59 Intake Total 100 100 360 Output Total 200 300 Balance -100 -200 360 Lab Results - Last 24 hrs: Laboratory Results - last 24 hr 01/14/21 Range/Units 05:55 Sodium 145 (136-145) mmol/L Potassium 3.6 (3.5-5.1) mmol/L Chloride 105 (98-107) mmol/L Carbon Dioxide 34 H (21-32) mmol/L Anion Gap 9.6 (7-13) mEq/L BUN 17 (7-18) mg/dL Creatinine 0.97 (0.55-1.02) mg/dL Est Cr Clr Drug Dosing 31.71 mL/min Estimated GFR (MDRD) 54 Glucose 102 H (74-99) mg/dL Calcium 8.2 L (8.5-10.1) mg/dL SONIA Results - Last 24 hrs: Microbiology 01/12/21 16:15 Urine Culture - Final Urine, Clean Catch Med Orders - Current: Current Medications Acetaminophen (Acetaminophen 325 Mg Tab) 650 mg PO Q4H PRN PRN Reason: Pain (Mild 1-3)/fever Bisacodyl (Bisacodyl 5 Mg Tab) 5 mg PO DAILY PRN PRN Reason: Constipation Calcium Carbonate (Calcium Carbonate/Vitamin D3 1250 Mg-200 Unit Tab) 1 tab PO DAILY [facility] Last Admin: 01/14/21 08:34 Dose: 1 tab Documented by: Cholecalciferol (Cholecalciferol (Vitamin D3) 25 Mcg Tab) 75 mcg PO DAILY [facility] Last Admin: 01/14/21 08:34 Dose: 75 mcg Documented by: Docusate Sodium (Docusate Sodium 100 Mg Cap) 100 mg PO BID PRN PRN Reason: Constipation Escitalopram Oxalate (Escitalopram 10 Mg Tab) 10 mg PO DAILY [facility] Last Admin: 01/14/21 08:34 Dose: 10 mg Documented by: Sodium Chloride (Normal Saline) 500 mls @ 250 mls/hr IV .BOLUS [facility] Last Admin: 01/12/21 13:51 Dose: 250 mls/hr Documented by: Latanoprost (Latanoprost 0.005% Ophth Soln 2.5 Ml Bottle) 0 ml EYEBOTH BEDTIME [facility] Last Admin: 01/13/21 21:13 Dose: 1 drop Documented by: Levothyroxine Sodium (Levothyroxine 75 Mcg Tab) 75 mcg PO DAILY [facility] Last Admin: 01/14/21 08:34 Dose: 75 mcg Documented by: Lisinopril (Lisinopril 20 Mg Tab) 20 mg PO DAILY [facility] Last Admin: 01/14/21 08:34 Dose: 20 mg Documented by: Multivitamins/Minerals (Lutein/Minerals/Vit A,C & E Tab) 1 each PO DAILY [facility] Last Admin: 01/14/21 08:34 Dose: 1 each Documented by: Non-Formulary Medication (Alendronate Sodium [Fosamax]) 70 mg PO .WEEKLY [facility] Non-Formulary Medication (Eyepromise Restore) 1 tab PO BID [facility] Non-Formulary Medication (Ketorolac) 1 drop EYELF ASDIRECTED [facility] Ondansetron HCl (Ondansetron 4 Mg/2 Ml Sdv) 4 mg IVPUSH Q6H PRN PRN Reason: Nausea/Vomiting Oxycodone/Acetaminophen (Acetaminophen/Oxycodone 325-5 Mg Tab) 1 tab PO Q4H PRN PRN Reason: Pain (moderate 4-6) Last Admin: 01/12/21 20:50 Dose: 1 tab Documented by: Sodium Chloride (Sodium Chloride 0.9% 10 Ml Syringe) 10 ml FLUSH ASDIRECTED PRN PRN Reason: Keep Vein Open Last Admin: 01/12/21 13:51 Dose: 10 ml Documented by: Discontinued Medications Acetaminophen (Acetaminophen 500 Mg Tab) 1,000 mg PO TID PRN PRN Reason: Pain (mild 1-3) Famotidine (Famotidine 20 Mg/2 Ml Sdv) 20 mg IVPUSH ONETIME ONE Stop: 01/12/21 13:36 Last Admin: 01/12/21 13:51 Dose: 20 mg Documented by: Hydromorphone HCl (Hydromorphone 0.5 Mg/0.5 Ml Syringe) 0.5 mg IVPUSH ONETIME ONE Stop: 01/12/21 13:36 Last Admin: 01/12/21 13:51 Dose: 0.5 mg Documented by: Sodium Chloride (Normal Saline) 1,000 mls @ 50 mls/hr IV ASDIRECTED [facility] Last Infusion: 01/13/21 10:02 Dose: 0 mls/hr Documented by: Iopamidol (Iopamidol 612 Mg/Ml 100 Ml Bottle) 100 ml IVPUSH ONETIME ONE Stop: 01/12/21 14:20 Last Admin: 01/12/21 14:49 Dose: 75 ml Documented by: Non-Formulary Medication (Fosinopril Sodium [Fosinopril Sodium]) 20 mg PO DAILY [facility] Last Admin: 01/13/21 10:01 Dose: Not Given Documented by: Non-Formulary Medication (Ofloxacin [Ocuflox 0.3% Ophth Soln]) 1 drop EYELF ASDIRECTED [facility] Non-Formulary Medication (Prednisolone Acetate/Pf [Prednisolone Acet 1% Eye Drop]) 1 drop EYELF ASDIRECTED [facility] Ondansetron HCl (Ondansetron 4 Mg/2 Ml Sdv) 4 mg IV ONETIME ONE Stop: 01/12/21 13:36 Last Admin: 01/12/21 13:51 Dose: 4 mg Documented by: Psyllium Husk (Psyllium Husk Powder Sugar Free 5.85 Gm Packet) 1 pkt PO ASDIRECTED PRN PRN Reason: Constipation *Q Meaningful Use (DIS) - VTE *Q VTE Mechanical Contraindications *Q: At Risk for Falls
[2021-01-14] MEDS ORDERED: Acetaminophen/oxyCODONE 325-5 MG Tab ONE (11:48)
[2021-01-14] MEDS ORDERED: Acetaminophen/HYDROcodone 325-5 MG Tab PO ONE (12:29)
[2021-01-14] MEDS ORDERED: Acetaminophen/oxyCODONE 325-5 MG Tab PO ONE (12:29)
== END 2021-01-14 12:30 | disposition home or self-care (01) ==
LOC: DL.ED 12:53 → DL.MS 16:22
PROVIDERS: ADMIT Internal Medicine; ATTEND Internal Medicine
DX: N20.1 Calculus of ureter (principal); K57.30 Diverticulosis of large intestine without perforation or abscess without bleeding; E78.00 Pure hypercholesterolemia, unspecified; I10 Essential (primary) hypertension; E03.9 Hypothyroidism, unspecified; Z20.822 Contact with and (suspected) exposure to COVID-19; Z98.890 Other specified postprocedural states; Z88.8 Allergy status to other drugs, medicaments and biological substances; Z79.899 Other long term (current) drug therapy; Z79.890 Hormone replacement therapy
CPT/HCPCS: 36415; 74177; 80048; 80053; 81001; 82150; 83605; 83690; 85025; 87086; 96374; 96375; 99285; A9270; J1170; J2405; J3490; J7030; J7040; Q9967; U0002; 99284; G0378

== ENCOUNTER 2021-03-21 18:19 | Emergency (ER) | payer MEDICARE | END 2021-03-21 19:45 | disposition left against medical advice (07) | LOC: DL.ED 18:19 | DX: R07.81 Pleurodynia (principal); Z53.21 Procedure and treatment not carried out due to patient leaving prior to being seen by health care provider ==

== ENCOUNTER 2021-08-22 13:02 | Emergency (ER) | payer MEDICARE ==
--- NOTE | 2021-08-22 13:02 | EDM.PDOC ---
ED HPI GENERAL MEDICAL PROBLEM - General Chief Complaint: General Stated Complaint: Generalized weakness, lightheaded Time Seen by Provider: 08/22/21 13:02 Source of Information: Reports: Patient, EMS, Old Records, RN, RN Notes Reviewed History Limitations: Reports: No Limitations - History of Present Illness INITIAL COMMENTS - FREE TEXT/NARRATIVE: Pt arrives to ER by ambulance with c/o vague symptoms of generalized weakness, lightheadedness, and "just not feeling right". Pt states she slid off of her bed on 08/20/21 and required two staff members to help her up and back into bed. She says she hasn't gotten out of bed much since then because she feels too week. Pt states her daughter usually helps her quite a bit, but the daughter "took off to [place] to hernandes". Pt states that she has chronic blurred vision, and the vision in addition to her age makes her frail and therefore she requires help. States that since she has become weak, and has less help she doesn't feel safe in her apartment. She didn't eat last night or today because she was too week to get up. Denies headache, chest pain, N/V/D, or dysuria, fever, chills, syncope, unilateral weakness, slurred speech, or difficulty swallowing. Denies any injury from sliding off the bed Friday. Onset: Gradual Onset Date: 08/20/21 Duration: Constant Location: Reports: Generalized Quality: Reports: Other (Denies pain) Severity: Severe Improves with: Reports: None Worsens with: Reports: None Associated Symptoms: Reports: No Other Symptoms Generalized Pain Score (Numeric/FACES): 4 - Related Data Allergies Allergy/AdvReac Type Severity Reaction Status Date / Time aspirin Allergy Bleeding Verified 01/12/21 13:13 NSAIDS (Non-Steroidal Allergy Bleeding Verified 01/12/21 13:13 Anti-Inflamma Home Meds: Home Meds Calcium Carbonate [Calcium] 500 mg PO ATDISCHARGE 08/22/21 [History] Donepezil [Aricept] 5 mg PO BEDTIME 08/22/21 [History] Escitalopram [Lexapro] 20 mg PO DAILY 08/22/21 [History] Levothyroxine 75 mcg PO ACBREAKFAST 08/22/21 [History] hydroCHLOROthiazide [Hydrochlorothiazide] 25 mg PO DAILY 08/22/21 [History] Past Medical History HEENT History: Reports: Cataract, Glaucoma, Macular Degeneration Other HEENT History: Sees spots in her vision at times Cardiovascular History: Reports: Heart Murmur, High Cholesterol, Hypertension Respiratory History: Reports: Bronchitis, Recurrent Gastrointestinal History: Reports: Diverticulosis, Hemorrhoids, Other (See Below) Other Gastrointestinal History: HX OF DIVERTICULITIS OF COLON Genitourinary History: Reports: Urinary Incontinence Other Genitourinary History: Stress incontinence STATISTICS MANAGER History: Reports: , Spontaneous Musculoskeletal History: Reports: Fracture, Osteoarthritis, Osteoporosis, Other (See Below) Other Musculoskeletal History: polymyalgia rheumatica, Proximal humeral fracture, Distal radial Fracture, closed left hip fracture Neurological History: Reports: None Psychiatric History: Reports: Depression Endocrine/Metabolic History: Reports: Hyperparathyroidism, Hypothyroidism, Osteopenia, Osteoporosis Other Endocrine/Metabolic History: Hypothyroidism Hematologic History: Reports: Anemia Immunologic History: Reports: None Oncologic (Cancer) History: Reports: Squamous Cell Carcinoma, Other (See Below) Other Oncologic History: Endometrial cancer Dermatologic History: Reports: None - Infectious Disease History Infectious Disease History: Reports: Chicken Pox, Measles, Mumps - Past Surgical History HEENT Surgical History: Reports: Cataract Surgery Cardiovascular Surgical History: Reports: None Respiratory Surgical History: Reports: None GI Surgical History: Reports: Colonoscopy, Polypectomy Other GI Surgeries/Procedures: polypectomy Female Surgical History: Reports: D&C, Hysterectomy, Salpingo-Oophorectomy, Other (See Below) Other Female Surgeries/Procedures: Endometrial biopsy, lymphadenectomy (pelvic-all negative) Endocrine Surgical History: Reports: Parathyroidectomy, Other (See Below) Other Endocrine Surgeries/Procedures: Parathyroidectomy. LYMPHADENECTOMY PELVIC Neurological Surgical History: Reports: None Musculoskeletal Surgical History: Reports: Knee Replacement, Other (See Below) Other Musculoskeletal Surgeries/Procedures:: HIP SURGERY Oncologic Surgical History: Reports: None Dermatological Surgical History: Reports: Skin Biopsy Social & Family History - Family History Family Medical History: No Pertinent Family History Respiratory: Reports: Other (See Below) Other Respiratory Family Hisory: has lung cancer GI: Reports: Hepatitis OBGYN: Reports: Other (See Below) Other OBGYN Family History: hysterectomy. CA of uterus Musculoskeletal: Reports: Arthritis Neurological: Reports: CVA Psychiatric: Reports: Depression Endocrine/Metabolic: Reports: Diabetes, type II Other Endocrine/Metabolic Family History: grand daughter has diabetes. Hematologic: Reports: Other (See Below) Other Hematologic Family History: bleeds easily. Oncologic: Reports: Breast, Lung, Uterine - Caffeine Use Caffeine Use: Reports: Other Other Caffeine Use: decaf - Living Situation & Occupation Living situation: Reports: , Alone, Assisted Living Occupation: Retired ED ROS GENERAL - Review of Systems Review Of Systems: Comprehensive ROS is negative, except as noted in HPI. ED EXAM, GENERAL - Physical Exam Exam: See Below Exam Limited By: No Limitations General Appearance: Alert, No Apparent Distress, Other (Frail elderly female, non-toxic appearing) Eye Exam: Bilateral Eye: Normal Inspection Ears: Normal External Exam, Hearing Grossly Normal Nose: Normal Inspection Throat/Mouth: Normal Lips, Normal Voice, No Airway Compromise Head: Atraumatic, Normocephalic Neck: Normal Inspection, Non-Tender Respiratory/Chest: No Respiratory Distress, Lungs Clear, No Accessory Muscle Use Cardiovascular: Normal Peripheral Pulses, Regular Rate, Rhythm, No Edema GI/Abdominal: Normal Bowel Sounds, Soft, Non-Tender Back Exam: Normal Inspection Extremities: Normal Inspection, Non-Tender, No Pedal Edema Neurological: Alert, Oriented (to person, place, and date), CN II-XII Intact (chronic/stable vision impairment otherwise stable), No Motor/Sensory Deficits, Other (Generalized weakness) Psychiatric: Depressed Mood, Flat Affect Skin Exam: Warm, Dry, Intact, Normal Color, No Rash #1 Interpretation EKG Date: 08/22/21 Time: 14:06 Rhythm: Other (SR) Rate (Beats/Min): 72 [place]: LAD-Left [place] Deviation P-Wave: Present QRS: Other (Old inferior Q-waves) ST-T: Normal QT: Normal Comparison: NA - No Prior EKG Course - Vital Signs Last Recorded V/S: Last Vital Signs Temp 97.9 F 08/22/21 13:18 Pulse 84 08/22/21 13:18 Resp 20 08/22/21 13:18 BP 153/69 H 08/22/21 13:18 Pulse Ox 93 L 08/22/21 13:18 - Orders/Labs/Meds Orders: Active Orders 24 hr Category Date Time Status Blood Glucose Check, Bedside [RC] ONETIME Care 08/22/21 13:19 Active Peripheral IV Care [RC] . DIRECTED Care 08/22/21 13:21 Active Sodium Chloride 0.9% [Saline Flush] Med 08/22/21 13:21 Active 10 ml FLUSH ASDIRECTED PRN Peripheral IV Insertion Adult [OM.PC] Stat Oth 08/22/21 13:20 Ordered Medication Orders Sodium Chloride (Sodium Chloride 0.9% 10 Ml Syringe) 10 ml FLUSH ASDIRECTED PRN PRN Reason: Keep Vein Open Last Admin: 08/22/21 15:23 Dose: 10 ml Documented by: ENMANUEL Labs: Laboratory Tests 08/22/21 08/22/21 08/22/21 Range/Units 13:07 13:28 13:28 WBC 5.5 (5.0-10.0) 10^3/uL RBC 4.17 L (4.2-5.4) 10^6/uL Hgb 11.6 L (12.0-16.0) g/dL Hct 36.7 L (37.0-47.0) % MCV 88.0 D (80-100) fL MCH 27.8 (27.0-34.0) pg MCHC 31.6 L (33.0-35.0) g/dL Plt Count 198 (150-450) 10^3/uL Neut % (Auto) 76.8 H (42.2-75.2) % Lymph % (Auto) 12.4 L (20.5-50.1) % Irwin % (Auto) 9.7 H (2-8) % Eos % (Auto) 0.7 L (1.0-3.0) % Baso % (Auto) 0.4 (0.0-1.0) % Sodium 141 (136-145) mmol/L Potassium 3.6 (3.5-5.1) mmol/L Chloride 103 (98-107) mmol/L Carbon Dioxide 29 (21-32) mmol/L Anion Gap 12.6 (7-13) mEq/L BUN 20 H (7-18) mg/dL Creatinine 0.83 (0.55-1.02) mg/dL Est Cr Clr Drug Dosing 46.35 mL/min Estimated GFR (MDRD) > 60 BUN/Creatinine Ratio 24.1 (No establ ref range) Glucose 109 H (70-99) mg/dL POC Glucose 107 H (70-99) mg/dL Calcium 8.9 (8.5-10.1) mg/dL Magnesium 1.9 (1.8-2.4) mg/dL Total Bilirubin 0.7 (0.2-1.0) mg/dL AST 21 (15-37) U/L ALT 21 (14-59) U/L Alkaline Phosphatase 88 (46-116) U/L Troponin I High Sens 13 (<=51) pg/mL B-Natriuretic Peptide 182 H (0-100) pg/ml Total Protein 7.1 (6.4-8.2) g/dL Albumin 3.4 (3.4-5.0) g/dL Globulin 3.7 Albumin/Globulin Ratio 0.9 Urine Color (YELLOW) Urine Appearance (CLEAR) Urine pH (5.0-9.0) Ur Specific [place] (1.005-1.030) Urine Protein (NEGATIVE) Urine Glucose (UA) (NEGATIVE) Urine Ketones (NEGATIVE) Urine Occult Blood (NEGATIVE) Urine Nitrite (NEGATIVE) Urine Bilirubin (NEGATIVE) Urine Urobilinogen (0.2-1.0) mg/dL Ur Leukocyte Esterase (NEGATIVE) Urine RBC (0-5) /HPF Urine WBC (0-5/HPF) /HPF Ur Epithelial Cells (NOT SEEN) /HPF SARS-CoV-2 RNA (VICTORIANO) (NEGATIVE) 08/22/21 08/22/21 Range/Units 13:56 14:59 WBC (5.0-10.0) 10^3/uL RBC (4.2-5.4) 10^6/uL Hgb (12.0-16.0) g/dL Hct (37.0-47.0) % MCV (80-100) fL MCH (27.0-34.0) pg MCHC (33.0-35.0) g/dL Plt Count (150-450) 10^3/uL Neut % (Auto) (42.2-75.2) % Lymph % (Auto) (20.5-50.1) % Irwin % (Auto) (2-8) % Eos % (Auto) (1.0-3.0) % Baso % (Auto) (0.0-1.0) % Sodium (136-145) mmol/L Potassium (3.5-5.1) mmol/L Chloride (98-107) mmol/L Carbon Dioxide (21-32) mmol/L Anion Gap (7-13) mEq/L BUN (7-18) mg/dL Creatinine (0.55-1.02) mg/dL Est Cr Clr Drug Dosing mL/min Estimated GFR (MDRD) BUN/Creatinine Ratio (No establ ref range) Glucose (70-99) mg/dL POC Glucose (70-99) mg/dL Calcium (8.5-10.1) mg/dL Magnesium (1.8-2.4) mg/dL Total Bilirubin (0.2-1.0) mg/dL AST (15-37) U/L ALT (14-59) U/L Alkaline Phosphatase (46-116) U/L Troponin I High Sens (<=51) pg/mL B-Natriuretic Peptide (0-100) pg/ml Total Protein (6.4-8.2) g/dL Albumin (3.4-5.0) g/dL Globulin Albumin/Globulin Ratio Urine Color Yellow (YELLOW) Urine Appearance Clear (CLEAR) Urine pH 7.0 (5.0-9.0) Ur Specific [place] 1.025 (1.005-1.030) Urine Protein Negative (NEGATIVE) Urine Glucose (UA) Negative (NEGATIVE) Urine Ketones Trace H (NEGATIVE) Urine Occult Blood Trace-intact H (NEGATIVE) Urine Nitrite Negative (NEGATIVE) Urine Bilirubin Negative (NEGATIVE) Urine Urobilinogen 0.2 (0.2-1.0) mg/dL Ur Leukocyte Esterase Negative (NEGATIVE) Urine RBC 0-5 (0-5) /HPF Urine WBC 0-5 (0-5/HPF) /HPF Ur Epithelial Cells Few (NOT SEEN) /HPF SARS-CoV-2 RNA (VICTORIANO) Negative (NEGATIVE) Meds: Medications Generic Name Dose Route Start Last Admin Trade Name Freq PRN Reason Stop Dose Admin Sodium Chloride 10 ml 08/22/21 13:21 08/22/21 15:23 Sodium Chloride 0.9% 10 Ml Syringe FLUSH 10 ml ASDIRECTED PRN Administration Keep Vein Open - Radiology Interpretation Free Text/Narrative:: Chest x-ray: Pleural reactive changes left knee. No new signs of lung malignancy, lobar pneumonia or heart failure. See rad report. Heart CT: Extensive multi-infarct ischemic changes. No intracranial mass, hydrocephalus or bleed. See rad report. - Re-Assessments/Exams Free Text/Narrative Re-Assessment/Exam: 08/22/21 17:44 Pt was going to be admitted for gen. weakness because no family was available to provide her the assistance she needs in her apartment. No bed was available here in . The pt was going to be transferred to [facility], but that bed became unavailable before the transfer could be arranged. Now a family member has arranged to stay with the pt in her apartment. Departure - Departure Time of Disposition: 17:47 Disposition: Home, Self-Care 01 Condition: Fair Clinical Impression: Generalized weakness - Discharge Information *PRESCRIPTION DRUG MONITORING PROGRAM REVIEWED*: Not Applicable *COPY OF PRESCRIPTION DRUG MONITORING REPORT IN PATIENT MERNA: Not Applicable Instructions: Weakness, Deconditioning Forms: ED Department Discharge Additional Instructions: Follow up with your primary doctor for further evaluation within the next several days if your weakness does not improve. Return to ER if worse at any time, or if any new or emergent symptoms develop. Sepsis Event Note (ED) - Focused Exam Vital Signs: Vital Signs Temp Pulse Resp BP Pulse Ox 08/22/21 13:18 97.9 F 84 20 153/69 H 93 L - My Orders Last 24 Hours: My Active Orders 08/22/21 13:19 Blood Glucose Check, Bedside [RC] ONETIME 08/22/21 13:20 Peripheral IV Insertion Adult [OM.PC] Stat 08/22/21 13:21 Peripheral IV Care [RC] . DIRECTED Sodium Chloride 0.9% [Saline Flush] 10 ml FLUSH ASDIRECTED PRN - Assessment/Plan Last 24 Hours: My Active Orders 08/22/21 13:19 Blood Glucose Check, Bedside [RC] ONETIME 08/22/21 13:20 Peripheral IV Insertion Adult [OM.PC] Stat 08/22/21 13:21 Peripheral IV Care [RC] . DIRECTED Sodium Chloride 0.9% [Saline Flush] 10 ml FLUSH ASDIRECTED PRN
[2021-08-22] MEDS ORDERED: Sodium Chloride 0.9% 10 ML Syringe FLUSH PRN (13:21)
[2021-08-22 13:32] VITALS: BP 153/69; PULSE 84
--- NOTE | 2021-08-22 13:51 | CR ---
EXAMINATION: Chest 1V Frontal SEX: Female AGE: 89 years CLINICAL HISTORY: 89-year-old hypertensive female with weakness (near syncope). Comparison CXR 22 December 2012. "Cholelithiasis; fragoso colonic diverticulosis; lung bases clear" CT scan to January 2021. Interpretation: 1. Old fracture deformity proximal left humerus (arthritis both shoulders). Note: Fracture left humeral neck is new since December 2012 exam. Mild scoliosis and arthritic changes dorsal spine. 2. Asymmetric elevation right hemidiaphragm and generalized poor inspiratory effort. External aircraft detail draftsperson leads. 3. Normal cardiac silhouette without pulmonary vascular congestion, cephalization of flow or alveolar edema however, *asymmetric dependent new subpulmonic pleural effusion and/or pleural reactive changes blunting the left CP angle. 4. No new lung mass lesion or hilar lymphadenopathy. 5. No alveolar consolidation, air bronchograms or suspicious peripheral "groundglass" interstitial lung densities. 6. No pneumothorax or pneumomediastinum. Midline tracheobronchial airway unremarkable. CONCLUSION: Pleural reactive changes left base. No new signs of lung malignancy, lobar pneumonia or heart failure.
[2021-08-22 13:54] LABS: ANION GAP 12.6 mEq/L (7-13); CHLORIDE,CL 103 mmol/L (98-107); SODIUM,NA 141 mmol/L (136-145)
--- NOTE | 2021-08-22 14:54 | CT ---
EXAMINATION: Head wo Cont SEX: Female AGE: 89 years CLINICAL HISTORY: 89-year-old hypertensive, weak and dizzy, female (near syncope). Comparison CT July 2014. Scan technique: Volume acquisition of data emergency unenhanced CT scan of the head and brain obtained with the patient lying supine on the Siemens multislice scanner [place], [place]. All data archived in the PACS system for storage, reformatting axial/sagittal/coronal planes and study. Interpretation: 1. Multi-infarct ischemic disease i.e. large areas of decreased attenuation identified throughout the periventricular white matter of both cerebral hemispheres (particularly frontal lobes also parietal and occipital lobes), genu (knee) left internal capsule and most of the external capsule, also on the left. 2. No new evidence of supratentorial or posterior fossa mass lesion. No edema or mass effect. 3. Mirror-image normal ventricular system. No hydrocephalus. Punctate calcification basal ganglia on the right unchanged since July 2014 CT exam. Physiologic midline pineal and symmetric choroid plexus calcifications. 4. Uniformly thick bony calvarium. Symmetric clear pneumatization of the paranasal and mastoid sinuses. No sign of skull fracture, underlying brain contusion or epidural/subdural hematoma. 5. No sign of acute intracerebral, intraventricular or subarachnoid bleed. 6. Cerebellum and brainstem unremarkable. No CP angle mass lesions posterior fossa. CONCLUSION: Extensive multi-infarct ischemic changes. No intracranial mass, hydrocephalus or bleed.
== END 2021-08-22 18:39 | disposition home or self-care (01) ==
LOC: DL.ED 13:02
DX: R53.1 Weakness (principal); I10 Essential (primary) hypertension; E03.9 Hypothyroidism, unspecified; Z20.822 Contact with and (suspected) exposure to COVID-19; Z88.6 Allergy status to analgesic agent; Z88.8 Allergy status to other drugs, medicaments and biological substances; Z79.899 Other long term (current) drug therapy
CPT/HCPCS: 36415; 70450; 71045; 80053; 81001; 82947; 83735; 83880; 84484; 85025; 93005; 99285; U0002